=== PATIENT | female | born 2000 | race African-American/Black ===

== ENCOUNTER 2020-06-02 09:31 | Observation (INO) | payer SELFPAY ==
[~2020-06-02] VITALS: Ht 175.3 cm; Wt 95.0 kg
[2020-06-02] MEDS ORDERED: IV NORMAL SALINE 1000ML BAG 1,000 ML IV ONE (10:00)
--- NOTE | 2020-06-02 10:20 | PHYS DOC ---
Past Medical History Past Medical History: No Pertinent History Past Surgical History: No Surgical History Smoking Status: Never Smoker Alcohol Use: None General Adult EDM: Chief Complaint: NAUSEA/VOMITING/DIARRHEA HPI: HPI: 20-year-old female present emergency department with nausea vomiting and abdominal pain for about 5 days. She more than a week ago was diagnosed with an abscess received an incision and drainage and has been on antibiotics. She initially was doing fine with the antibiotics however about 5 days ago she started having nausea vomiting with abdominal pain. She does have vaginal bleeding but is on her period currently. She denies fevers or chills or rashes. Review of systems negative for chest pain shortness of breath nuchal rigidity rash or fever. All other review of systems negative. She denies head injury. ED course: 20-year-old female presenting with nausea and vomiting and abdominal pain with vaginal bleeding currently on her period. On arrival the patient is afebrile. Pulse within normal limits. Abdomen is soft and mildly tender to palpation generally without focus. Blood work with CT abdomen pelvis and ultrasound of the pelvis ordered. CBC unremarkable. Chemistry panel shows low potassium. Creatinine 1.2. No previous for comparison. Lipase within normal limits. Magnesium within normal limits. Urine analysis shows cloudy urine which has increased specific gravity with trace ketones large blood small bilirubin and moderate leuk esterase. Probable UTI. We will give IV Rocephin. We will give IV potassium. Will replete with IV fluids for probable acute kidney injury. On reexamination the patient continues to have nausea with vomiting. The patient refused a pelvic ultrasound. I explained my concern for evaluating the patient's ovary to ensure that she does not have ovarian torsion. She understands the risk of disability infertility chronic pain or other ramifications of this decision. After discussion with her she is willing to have the pelvic ultrasound performed. Will admit for IV fluids and potassium repletion with serial monitoring overnight. I spoke with the hospitalist who accepts patient for admission. Review of Systems: Review of Systems: Constitutional: Denies fever or chills. [] Eyes: Denies change in visual acuity. [] HENT: Denies nasal congestion or sore throat. [] Respiratory: Denies cough or shortness of breath. [] Cardiovascular: Denies chest pain or edema. [] GI: Denies bloody stools : Denies dysuria. [] Musculoskeletal: Denies back pain or joint pain. [] Integument: Denies rash. [] Neurologic: Denies headache, focal weakness or sensory changes. [] Endocrine: Denies polyuria or polydipsia. [] Lymphatic: Denies swollen glands. [] Psychiatric: Denies depression or anxiety. [] Heart Score: C/O Chest Pain: No Risk Factors: Risk Factors: DM, Current or recent (<one month) smoker, HTN, HLP, family history of CAD, obesity. Risk Scores: Score 0 - 3: 2.5% MACE over next 6 weeks - Discharge Home Score 4 - 6: 20.3% MACE over next 6 weeks - Admit for Clinical Observation Score 7 - 10: 72.7% MACE over next 6 weeks - Early Invasive Strategies Current Medications: Current Medications Medications (Trade) Dose Ordered Sig/Jim Start Time Stop Time Status Last Admin Dose Admin Sodium Chloride 1,000 ml @ 1,000 mls/hr Q1H ONCE 06/02/20 10:00 06/02/20 10:59 Allergies: Allergies: Allergies Coded Allergies Type Severity Reaction Last Updated Verified No Known Drug Allergies 06/02/20 No Physical Exam: PE: Constitutional: Well developed, well nourished, no acute distress, non-toxic appearance. [] HENT: Normocephalic, atraumatic, bilateral external ears normal, oropharynx moist, no oral exudates, nose normal. [] Eyes: PERRLA, EOMI, conjunctiva normal, no discharge. [] Neck: Normal range of motion, no tenderness, supple, no stridor. [] Cardiovascular:Heart rate regular rhythm, no murmur [] Lungs & Thorax: Bilateral breath sounds clear to auscultation [] Abdomen: Bowel sounds normal, soft, generally tender without a focus. No rebound tenderness or guarding., no masses, no pulsatile masses. [] Skin: Warm, dry, no erythema, no rash. [] Back: No tenderness, no CVA tenderness. [] Extremities: No tenderness, no cyanosis, no clubbing, ROM intact, no edema. [] Neurologic: Alert and oriented X 3, normal motor function, normal sensory function, no focal deficits noted. [] Psychologic: Affect normal, judgement normal, mood normal. [] Current Patient Data: Labs: Laboratory Tests Test 06/02/20 09:47 POC Urine HCG, Qualitative Hcg negative (Negative) Vital Signs: Vital Signs Date Time Temp Pulse Resp B/P (MAP) Pulse Ox O2 Delivery O2 Flow Rate FiO2 06/02/20 09:45 98.2 64 16 132/59 (83) 100 Room Air 98.2 EKG: EKG: [] Radiology/Procedures: Radiology/Procedures: [] Course & Med Decision Making: Course & Med Decision Making Pertinent Labs and Imaging studies reviewed. (See chart for details) [] Dragon Disclaimer: Dragon Disclaimer: This electronic medical record was generated, in whole or in part, using a voice recognition dictation system. Departure Departure Impression: Primary Impression: ZAK (acute kidney injury) Additional Impressions: Hypokalemia N&V (nausea and vomiting) UTI (urinary tract infection) Disposition: ADMITTED INPT THIS HOSP Admitting Physician: REMIGIO Condition: STABLE Referrals: NO PCP (PCP) NITESH FRAZIER MD Jun 02, 2020 10:20
[2020-06-02 10:22] LABS: BILIRUBIN,URINE SMALL (NEG); CLARITY,URINE CLOUDY; COLOR,URINE AMBER; NITRITE,URINE NEGATIVE (NEG); PH,URINE 5.5 (<5.0-8.0); PROTEIN,URINE 30 mg/dL (NEG-TRACE); UROBILINOGEN,URINE 0.2 mg/dL (0.2 mg/dL)
[2020-06-02] MEDS ORDERED: ONDANSETRON PF 4 MG/2 ML VIAL. ONE (10:31)
[2020-06-02 10:39] LABS: BACTERIA,URINE FEW /HPF (0-FEW)
[2020-06-02] MEDS ORDERED: ONDANSETRON PF 4 MG/2 ML VIAL. IV ONE (10:45)
[2020-06-02 10:46] LABS: BASO % 0 % (0-3); EOS % 0 % (0-3); HEMATOCRIT 39.6 % (36.0-47.0); HEMOGLOBIN 13.3 g/dL (12.0-15.5); LYMPH # 1.8 x10^3/uL (1.0-4.8); LYMPH % 30 % (24-48); MEAN CORPUSCULAR HEMOGLOBIN 30 pg (25-35); MEAN CORPUSCULAR HGB CONC 34 g/dL (31-37); MEAN CORPUSCULAR VOLUME 88 fL (79-100); MONO # 0.6 x10^3/uL (0.0-1.1); MONO % 10 % (0-9); NEUT # 3.6 x10^3/uL (1.8-7.7); NEUT % 60 % (31-73); PLATELET COUNT 268 x10^3/uL (140-400); RED BLOOD COUNT 4.51 x10^6/uL (3.50-5.40); RED CELL DISTRIBUTION WIDTH 15.4 % (11.5-14.5)
[2020-06-02 10:54] LABS: ALBUMIN 4.1 g/dL (3.4-5.0); ALBUMIN/GLOBULIN RATIO 0.9 (1.0-1.7); CALCIUM 9.3 mg/dL (8.5-10.1); CREATININE 1.2 mg/dL (0.6-1.0); TOTAL BILIRUBIN 0.5 mg/dL (0.2-1.0); TOTAL PROTEIN 8.7 g/dL (6.4-8.2)
[2020-06-02] MEDS ORDERED: CONTRAST GIVEN. MC PRN (11:15)
[2020-06-02] MEDS ORDERED: IOHEXOL 300 MG/ML 100ML VIAL. IV ONE (11:15)
[2020-06-02] MEDS ORDERED: POTASSIUM CHLORIDE 20MEQ 100 ML IV ONE (11:30)
--- NOTE | 2020-06-02 11:42 | RAD ---
PQRS Compliance Statement: One or more of the following individualized dose reduction techniques were utilized for this examinat ion: 1. Automated exposure control 2. Adjustment of the mA and/or kV according to patient size 3. Use of iterative reconstruction technique CT ABDOMEN+PELVIS W Clinical Indication: Reason: abd pain /nausea, vomiting, diarrhea x5 days. Comparison: None. Technique: Helical CT imaging of the abdomen and pelvis is performed after 75 cc of Omnipaque 300 IV contrast. Oral contrast not administered. Findings: Lung bases are clear, there is respiratory motion artifact. The cardiac size is normal. The liver, gallbladder, spleen, pancreas, adrenal glands, abdominal aorta, and kidneys are normal. There is no obvious abnormality of the stomach. There is no dilated small bowel. The appendix is norm al. There is mild sigmoid colon diverticulosis. Transverse colon is decompressed, limiting evaluation . No colon wall thickening is identified. No abdominal adenopathy or free fluid. Retroverted uterus. The ovaries are similar in size. Urinary bladder is decompressed, otherwise casandra l. No pelvic free fluid. Bilateral inguinal lymph nodes may be reactive. There is superficial subcuta neous induration of the medial right upper thigh, image 92, coronal image 15. No acute bone abnormality. IMPRESSION: 1. No acute abdominal or pelvic abnormality. 2. There is superficial subcutaneous induration of the medial right upper thigh. Recommend correlati on with physical exam. 3. Bilateral inguinal lymph nodes may be reactive. 4. Mild sigmoid colon diverticulosis. Electronically signed by: Donal Mayer MD (06/02/2020 11:39 AM) [id number]
[2020-06-02] MEDS ORDERED: IV NORMAL SALINE 1000ML BAG 1,000 ML IV SCH (12:00)
[2020-06-02] MEDS ORDERED: cefTRIAXone IV Push 1 GM VIAL. IVP ONE (12:00)
--- NOTE | 2020-06-02 12:07 | PDOC1 ---
History and Physical Date of Admission Date of Admission DATE: 06/02/20 TIME: 12:06 Identification/Chief Complaint Chief Complaint INTRACTABLE VOMITING x 5 days History of Present Illness History of Present Illness SEEN IN ER WITH VOMITING NOT responsive to conservative rx 20-year-old female present emergency department with nausea vomiting and abdominal pain for 5 days. She more than a week ago was diagnosed with an abscess received an incision and drainage and has been on antibiotics. She initially was doing fine with the antibiotics however about 5 days ago she started having nausea vomiting with abdominal pain. She denies fevers or chills or rashes. CT ABN NEG , will make npo, start iv fluids, iv rocephin 1 gm q 24 hrs cr elevated at 1.2 14 pt Review of systems negative for chest pain shortness of breath nuchal rigidity rash or fever. She denies head injury. Past Medical History Past Medical History Past Medical History Past Medical History Past Medical History: obesity Past Surgical History: No Surgical History Smoking Status: Never Smoker Alcohol Use: None FHX OBESITY Pulmonary: No pertinent hx GI: No pertinent hx Heme/Onc: No pertinent hx Hepatobiliary: No pertinent hx Psych: No pertinent hx Rheumatologic: No pertinent hx Infectious disease: No pertinent hx Renal/: No pertinent hx Endocrine: No pertinent hx Dermatology: No pertinent hx Family History Family History: High Cholestrol, Hypertension Social History Smoke: No ALCOHOL: none Drugs: None Current Problem List Problem List Problems Medical Problems: (1) ZAK (acute kidney injury) Status: Acute (2) Hypokalemia Status: Acute (3) N&V (nausea and vomiting) Status: Acute (4) UTI (urinary tract infection) Status: Acute Current Medications Current Medications Current Medications Sodium Chloride 1,000 ml @ 1,000 mls/hr Q1H ONCE IV Last administered on 06/02/20at 10:34; Start 06/02/20 at 10:00; Stop 06/02/20 at 10:59; Status DC Ondansetron HCl (Zofran) 4 mg STK-MED ONCE .ROUTE ; Start 06/02/20 at 10:31; Stop 06/02/20 at 10:31; Status DC Ondansetron HCl (Zofran) 4 mg 1X ONCE IV Last administered on 06/02/20at 10:34; Start 06/02/20 at 10:45; Stop 06/02/20 at 10:46; Status DC Iohexol (Omnipaque 300 Mg/ml) 75 ml 1X ONCE IV Last administered on 06/02/20at 11:12; Start 06/02/20 at 11:15; Stop 06/02/20 at 11:16; Status DC Info (CONTRAST GIVEN -- Rx MONITORING) 1 each PRN DAILY PRN MC SEE COMMENTS; Start 06/02/20 at 11:15; Stop 06/04/20 at 11:14 Potassium Chloride/Water 100 ml @ 50 mls/hr 1X ONCE IV ; Start 06/02/20 at 11:30; Stop 06/02/20 at 13:29 Ceftriaxone Sodium (Rocephin) 1 gm 1X ONCE IVP Last administered on 06/02/20at 12:00; Start 06/02/20 at 12:00; Stop 06/02/20 at 12:01; Status DC Sodium Chloride 1,000 ml @ 120 mls/hr Q8H20M IV ; Start 06/02/20 at 12:00; Stop 06/02/20 at 15:59 Allergies Allergies: Coded Allergies: No Known Drug Allergies (Unverified , 06/02/20) ROS General: YES: Fatigue; No: Chills, Night Sweats, Malaise, Appetite, Other PSYCHOLOGICAL ROS: YES: Anxiety; No: Behavioral Disorder, Concentration difficultie, Decreased libido, Depression, Disorientation, Hallucinations, Hostility, Irritablity, Memory difficulties, Mood Swings, Obsessive thoughts, Physical abuse, Sexual abuse, Sleep disturbances, Suicidal ideation, Other Eyes: No Blurry vision, No Decreased vision, No Double vision, No Dry eyes, No Excessive tearing, No Eye Pain, No Itchy Eyes, No Loss of vision, No Photophobia, No Scotomata, No Uses contacts, No Uses glasses, No Other HEENT: No: Heacaches, Visual Changes, Hearing change, Nasal congestion, Nasal discharge, Oral lesions, Sinus pain, Sore Throat, Epistaxis, Sneezing, Snoring, Tinnitus, Vertigo, Vocal changes, Other ALLERGY AND IMMUNOLOGY: No: Hives, Insect Bite Sensitivity, Itchy/Watery Eyes, Nasal Congestion, Post Nasal Drip, Seasonal Allergies, Other Hematological and Lymphatic: No: Bleeding Problems, Blood Clots, Blood Transf usions, Brusing, Night Sweats, Pallor, Swollen Lymph Nodes, Other ENDOCRINE: No: Breast Changes, Galactorrhea, Hair Pattern Changes, Hot Flashes, Malaise/lethargy, Mood Swings, Palpitations, Polydipsia/polyuria, Skin Changes, Temperature Intolerance, Unexpected Weight Changes, Other Breast: No New/Changing Breast Lumps, No Nipple changes, No Nipple discharge, No Other Respiratory: No: Cough, Hemoptysis, Orthopnea, Pleuritic Pain, Shortness of breath, SOB with excertion, Sputum Changes, Stridor, Tachypnea, Wheezing, Other Cardiovascular: No Chest Pain, No Palpitations, No Orthopnea, No Paroxysmal Noc. Dyspnea, No Edema, No Lt Headedness, No Other Gastrointestinal: Yes Nausea, Yes Vomiting; No Abdominal Pain, No Diarrhea, No Constipation, No Melena, No Hematochezia, No Other Genitourinary: No Dysuria, No Frequency, No Incontinence, No Hematuria, No Retention, No Discharge, No Urgency, No Pain, No Flank Pain, No Other, No , No , No , No , No , No , No Musculoskeletal: Yes Muscular Weakness; No Gait Disturbance, No Joint Pain, No Joint Stiffness, No Joint Swelling, No Muscle Pain, No Pain In:, No Swelling In:, No Other Neurological: No Behavorial Changes, No Bowel/Bladder ControlChng, No Confusion, No Dizziness, No Gait Disturbance, No Headaches, No Impaired Coord/balance, No Memory Loss, No Numbness/Tingling, No Seizures, No Speech Problems, No Tremors, No Visual Changes, No Weakness, No Other Skin: No Dry Skin, No Eczema, No Hair Changes, No Lumps, No Mole Changes, No Mottling, No Nail Changes, No Pruritus, No Rash, No Skin Lesion Changes, No Other, No Acne Physical Exam General: Alert, Oriented X3, Cooperative, mild distress HEENT: Atraumatic, PERRLA, EOMI, Mucous membr. moist/pink Lungs: Clear to auscultation, Normal air movement Heart: S1S2, RRR, no thrills, no rubs, no gallops, no murmurs Cardiovascular: S1 Breasts: Not examined Abdomen: Normal bowel sounds, Soft Rectal Exam: not examined PELVIC: Examination not indicated Extremities: No cyanosis, No edema Neuro: Normal speech, Strength at 5/5 X4 ext, Cranial nerves 3-12 NL Psych/Mental Status: Mental status NL, Mood NL Vitals Vitals Vital Signs Date Time Temp Pulse Resp B/P (MAP) Pulse Ox O2 Delivery O2 Flow Rate FiO2 06/02/20 09:45 98.2 64 16 132/59 (83) 100 Room Air 98.2 Labs Labs Laboratory Tests Test 06/02/20 09:45 06/02/20 09:47 06/02/20 10:25 Urine Collection Type Unknown Urine Color Laurie Urine Clarity Cloudy Urine pH 5.5 (<5.0-8.0) Urine Specific [place] >=1.030 (1.000-1.030) Urine Protein 30 mg/dL (NEG-TRACE) Urine Glucose (UA) Negative mg/dL (NEG) Urine Ketones (Stick) Trace mg/dL (NEG) Urine Blood Large (NEG) Urine Nitrite Negative (NEG) Urine Bilirubin Small (NEG) Urine Urobilinogen Dipstick 0.2 mg/dL (0.2 mg/dL) Urine Leukocyte Esterase Moderate (NEG) Urine RBC 3-5 /HPF (0-2) Urine WBC 5-10 /HPF (0-4) Urine Squamous Epithelial Cells Many /LPF Urine Bacteria Few /HPF (0-FEW) Urine Mucus Mod /LPF Bedside Urine HCG, Qualitative Hcg negative (Negative) White Blood Count 6.0 x10^3/uL (4.0-11.0) Red Blood Count 4.51 x10^6/uL (3.50-5.40) Hemoglobin 13.3 g/dL (12.0-15.5) Hematocrit 39.6 % (36.0-47.0) Mean Corpuscular Volume 88 fL (79-100) Mean Corpuscular Hemoglobin 30 pg (25-35) Mean Corpuscular Hemoglobin Concent 34 g/dL (31-37) Red Cell Distribution Width 15.4 % (11.5-14.5) Platelet Count 268 x10^3/uL (140-400) Neutrophils (%) (Auto) 60 % (31-73) Lymphocytes (%) (Auto) 30 % (24-48) Monocytes (%) (Auto) 10 % (0-9) Eosinophils (%) (Auto) 0 % (0-3) Basophils (%) (Auto) 0 % (0-3) Neutrophils # (Auto) 3.6 x10^3/uL (1.8-7.7) Lymphocytes # (Auto) 1.8 x10^3/uL (1.0-4.8) Monocytes # (Auto) 0.6 x10^3/uL (0.0-1.1) Eosinophils # (Auto) 0.0 x10^3/uL (0.0-0.7) Basophils # (Auto) 0.0 x10^3/uL (0.0-0.2) Sodium Level 145 mmol/L (136-145) Potassium Level 3.0 mmol/L (3.5-5.1) Chloride Level 104 mmol/L (98-107) Carbon Dioxide Level 27 mmol/L (21-32) Anion Gap 14 (6-14) Blood Urea Nitrogen 16 mg/dL (7-20) Creatinine 1.2 mg/dL (0.6-1.0) Estimated GFR (Cockcroft-Gault) 68.0 BUN/Creatinine Ratio 13 (6-20) Glucose Level 109 mg/dL (70-99) Calcium Level 9.3 mg/dL (8.5-10.1) Magnesium Level 2.2 mg/dL (1.8-2.4) Total Bilirubin 0.5 mg/dL (0.2-1.0) Aspartate Amino Transf (AST/SGOT) 26 U/L (15-37) Alanine Aminotransferase (ALT/SGPT) 28 U/L (14-59) Alkaline Phosphatase 77 U/L (46-116) Total Protein 8.7 g/dL (6.4-8.2) Albumin 4.1 g/dL (3.4-5.0) Albumin/Globulin Ratio 0.9 (1.0-1.7) Lipase 82 U/L (73-393) Laboratory Tests Test 06/02/20 09:45 06/02/20 09:47 06/02/20 10:25 Urine Collection Type Unknown Urine Color Laurie Urine Clarity Cloudy Urine pH 5.5 (<5.0-8.0) Urine Specific [place] >=1.030 (1.000-1.030) Urine Protein 30 mg/dL (NEG-TRACE) Urine Glucose (UA) Negative mg/dL (NEG) Urine Ketones (Stick) Trace mg/dL (NEG) Urine Blood Large (NEG) Urine Nitrite Negative (NEG) Urine Bilirubin Small (NEG) Urine Urobilinogen Dipstick 0.2 mg/dL (0.2 mg/dL) Urine Leukocyte Esterase Moderate (NEG) Urine RBC 3-5 /HPF (0-2) Urine WBC 5-10 /HPF (0-4) Urine Squamous Epithelial Cells Many /LPF Urine Bacteria Few /HPF (0-FEW) Urine Mucus Mod /LPF Bedside Urine HCG, Qualitative Hcg negative (Negative) White Blood Count 6.0 x10^3/uL (4.0-11.0) Red Blood Count 4.51 x10^6/uL (3.50-5.40) Hemoglobin 13.3 g/dL (12.0-15.5) Hematocrit 39.6 % (36.0-47.0) Mean Corpuscular Volume 88 fL (79-100) Mean Corpuscular Hemoglobin 30 pg (25-35) Mean Corpuscular Hemoglobin Concent 34 g/dL (31-37) Red Cell Distribution Width 15.4 % (11.5-14.5) Platelet Count 268 x10^3/uL (140-400) Neutrophils (%) (Auto) 60 % (31-73) Lymphocytes (%) (Auto) 30 % (24-48) Monocytes (%) (Auto) 10 % (0-9) Eosinophils (%) (Auto) 0 % (0-3) Basophils (%) (Auto) 0 % (0-3) Neutrophils # (Auto) 3.6 x10^3/uL (1.8-7.7) Lymphocytes # (Auto) 1.8 x10^3/uL (1.0-4.8) Monocytes # (Auto) 0.6 x10^3/uL (0.0-1.1) Eosinophils # (Auto) 0.0 x10^3/uL (0.0-0.7) Basophils # (Auto) 0.0 x10^3/uL (0.0-0.2) Sodium Level 145 mmol/L (136-145) Potassium Level 3.0 mmol/L (3.5-5.1) Chloride Level 104 mmol/L (98-107) Carbon Dioxide Level 27 mmol/L (21-32) Anion Gap 14 (6-14) Blood Urea Nitrogen 16 mg/dL (7-20) Creatinine 1.2 mg/dL (0.6-1.0) Estimated GFR (Cockcroft-Gault) 68.0 BUN/Creatinine Ratio 13 (6-20) Glucose Level 109 mg/dL (70-99) Calcium Level 9.3 mg/dL (8.5-10.1) Magnesium Level 2.2 mg/dL (1.8-2.4) Total Bilirubin 0.5 mg/dL (0.2-1.0) Aspartate Amino Transf (AST/SGOT) 26 U/L (15-37) Alanine Aminotransferase (ALT/SGPT) 28 U/L (14-59) Alkaline Phosphatase 77 U/L (46-116) Total Protein 8.7 g/dL (6.4-8.2) Albumin 4.1 g/dL (3.4-5.0) Albumin/Globulin Ratio 0.9 (1.0-1.7) Lipase 82 U/L (73-393) Images Images PQRS Compliance Statement: One or more of the following individualized dose reduction techniques were utilized for this examination: 1. Automated exposure control 2. Adjustment of the mA and/or kV according to patient size 3. Use of iterative reconstruction technique CT ABDOMEN+PELVIS W Clinical Indication: Reason: abd pain /nausea, vomiting, diarrhea x5 days. Comparison: None. Technique: Helical CT imaging of the abdomen and pelvis is performed after 75 cc of Omnipaque 300 IV contrast. Oral contrast not administered. Findings: Lung bases are clear, there is respiratory motion artifact. The cardiac size is normal. The liver, gallbladder, spleen, pancreas, adrenal glands, abdominal aorta, and kidneys are normal. There is no obvious abnormality of the stomach. There is no dilated small bowel. The appendix is normal. There is mild sigmoid colon diverticulosis. Transverse colon is decompressed, limiting evaluation. No colon wall thickening is identifi ed. No abdominal adenopathy or free fluid. Retroverted uterus. The ovaries are similar in size. Urinary bladder is decompressed, otherwise normal. No pelvic free fluid. Bilateral inguinal lymph nodes may be reactive. There is superficial subcutaneous induration of the medial right upper thigh, image 92, coronal image 15. No acute bone abnormality. IMPRESSION: 1. No acute abdominal or pelvic abnormality. 2. There is superficial subcutaneous induration of the medial right upper thigh. Recommend correlation with physical exam. 3. Bilateral inguinal lymph nodes may be reactive. 4. Mild sigmoid colon diverticulosis. Electronically signed by: Donal Bishop MD (06/02/2020 11:39 AM) [id number] DICTATED and SIGNED BY: DONAL BISHOP MD DATE: 06/02/20 [id number] 0 VTE Prophylaxis Ordered VTE Prophylaxis Devices: Yes VTE Pharmacological Prophylaxi: Yes Assessment/Plan Assessment/Plan Impression: ZAK (acute kidney injury) obesity Hypokalemia N&V (nausea and vomiting) intractable UTI (urinary tract infection) ADMITTED iv fluid support npo DVT PROPHYLAXIS IV ZOFRAN 4 MG Q 4 HRS PRN REPLACE LYTES iv rocephin 1 gm q 24 hrs observation status Justifications for Admission Other Justification MARY AGUILAR MD Jun 02, 2020 12:07
[2020-06-02] MEDS ORDERED: METOCLOPRAMIDE HCL 10 MG/2 ML VIAL. IVP ONE (12:15)
[2020-06-02] MEDS ORDERED: HALOPERIDOL LACTATE 5 MG/ML VIAL. IVP ONE (12:30)
[2020-06-02] MEDS: cefTRIAXone IV Push 1 GM VIAL. IVP SCH (13:23)
[2020-06-02] MEDS ORDERED: guaiFENesin ORAL 200 MG/10 ML LIQUID. PO PRN (13:30)
[2020-06-02] MEDS ORDERED: LORazepam 0.5 MG TABLET PO PRN (13:30)
[2020-06-02] MEDS ORDERED: DOCUSATE SODIUM 100 MG CAPSULE. PO PRN (13:30)
[2020-06-02] MEDS ORDERED: ALBUTEROL SULFATE 2.5 MG/3 ML NEBU. NEB PRN (13:30)
[2020-06-02] MEDS ORDERED: ACETAMINOPHEN 325 MG TABLET. PO PRN (13:30)
[2020-06-02] MEDS ORDERED: ACETAMINOPHEN 650 MG SUPP.RECT. PR PRN (13:30)
[2020-06-02] MEDS ORDERED: SODIUM PHOSPHATES 19/7GM 133 ML ENEMA. PR PRN (13:30)
[2020-06-02] MEDS ORDERED: 0.9 % SODIUM CHLORIDE 10 ML DISP.SYRIN. IV PRN (13:30)
[2020-06-02] MEDS ORDERED: MAG HYDROX/ALUMINUM HYD/SIMETH 30 ML ORAL.SUSP PO PRN (13:30)
[2020-06-02 15:00] VITALS: BP 127/83
[2020-06-02] MEDS ORDERED: ENOXAPARIN 40 MG/0.4 ML SYRINGE. SQ SCH (16:00)
[2020-06-02 19:00] VITALS: BP 98/59
[2020-06-02] MEDS ORDERED: diphenhydrAMINE HCL 25 MG CAPSULE PO ONE (20:15)
[2020-06-02] MEDS: LACTOBACILLUS RHAMNOSUS GG 1 CAPSULE. PO SCH (20:45)
[2020-06-02] MEDS: ONDANSETRON PF 4 MG/2 ML VIAL. IV PRN (22:37)
[2020-06-02 23:00] VITALS: BP 142/92
[2020-06-03 03:00] VITALS: BP 128/77
[2020-06-03] MEDS: ONDANSETRON PF 4 MG/2 ML VIAL. IV PRN (04:50)
[2020-06-03 07:00] VITALS: BP 119/65
[2020-06-03 07:17] LABS: ALBUMIN 3.3 g/dL (3.4-5.0); ALBUMIN/GLOBULIN RATIO 0.9 (1.0-1.7); CALCIUM 7.9 mg/dL (8.5-10.1); CREATININE 1.2 mg/dL (0.6-1.0); POTASSIUM 3.7 mmol/L (3.5-5.1); TOTAL BILIRUBIN 0.4 mg/dL (0.2-1.0); TOTAL PROTEIN 6.8 g/dL (6.4-8.2)
[2020-06-03 07:23] LABS: BASO % 0 % (0-3); EOS % 0 % (0-3); HEMATOCRIT 35.9 % (36.0-47.0); HEMOGLOBIN 11.6 g/dL (12.0-15.5); LYMPH # 1.6 x10^3/uL (1.0-4.8); LYMPH % 31 % (24-48); MEAN CORPUSCULAR HEMOGLOBIN 29 pg (25-35); MEAN CORPUSCULAR HGB CONC 32 g/dL (31-37); MEAN CORPUSCULAR VOLUME 90 fL (79-100); MONO # 0.5 x10^3/uL (0.0-1.1); MONO % 10 % (0-9); NEUT % 59 % (31-73); PLATELET COUNT 225 x10^3/uL (140-400); RED BLOOD COUNT 3.99 x10^6/uL (3.50-5.40); RED CELL DISTRIBUTION WIDTH 15.1 % (11.5-14.5); WHITE BLOOD COUNT 5.1 x10^3/uL (4.0-11.0)
[2020-06-03] MEDS ORDERED: PROCHLORPERAZINE 10 MG/2 ML VIAL. IV PRN (08:15)
[2020-06-03] MEDS: LACTOBACILLUS RHAMNOSUS GG 1 CAPSULE. PO SCH (09:00)
--- NOTE | 2020-06-03 09:44 | NUR ---
SW following. Discussed with RN, pt from home, room air, NPO. Med Assist following for self pay status. SW will continue to follow.
[2020-06-03 11:00] VITALS: BP 123/77
--- NOTE | 2020-06-03 11:14 | PDOC ---
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 Chart reviewed Vitals/I&O Vitals/I&O: Vital Signs Date Time Temp Pulse Resp B/P (MAP) Pulse Ox O2 Delivery O2 Flow Rate FiO2 06/03/20 07:00 98.1 61 18 119/65 (83) 100 Room Air 98.1 I & O 06/02/20 06/02/20 06/03/20 15:00 23:00 07:00 Intake Total 1000 ml 170 ml Balance 1000 ml 170 ml Physical Exam General: Alert, Oriented X3, Cooperative, mild distress Heart: Regular rate, No murmurs Lungs: Clear, Other (No wheezes or crackles) Abdomen: Normal bowel sounds, Soft, No tenderness Extremities: No cyanosis, No edema Skin: No rashes, No significant lesion Labs Labs: Laboratory Tests Test 06/02/20 12:28 06/03/20 06:30 Glucose (Fingerstick) 103 mg/dL (70-99) White Blood Count 5.1 x10^3/uL (4.0-11.0) Red Blood Count 3.99 x10^6/uL (3.50-5.40) Hemoglobin 11.6 g/dL (12.0-15.5) Hematocrit 35.9 % (36.0-47.0) Mean Corpuscular Volume 90 fL (79-100) Mean Corpuscular Hemoglobin 29 pg (25-35) Mean Corpuscular Hemoglobin Concent 32 g/dL (31-37) Red Cell Distribution Width 15.1 % (11.5-14.5) Platelet Count 225 x10^3/uL (140-400) Neutrophils (%) (Auto) 59 % (31-73) Lymphocytes (%) (Auto) 31 % (24-48) Monocytes (%) (Auto) 10 % (0-9) Eosinophils (%) (Auto) 0 % (0-3) Basophils (%) (Auto) 0 % (0-3) Neutrophils # (Auto) 3.0 x10^3/uL (1.8-7.7) Lymphocytes # (Auto) 1.6 x10^3/uL (1.0-4.8) Monocytes # (Auto) 0.5 x10^3/uL (0.0-1.1) Eosinophils # (Auto) 0.0 x10^3/uL (0.0-0.7) Basophils # (Auto) 0.0 x10^3/uL (0.0-0.2) Sodium Level 147 mmol/L (136-145) Potassium Level 3.7 mmol/L (3.5-5.1) Chloride Level 111 mmol/L (98-107) Carbon Dioxide Level 28 mmol/L (21-32) Anion Gap 8 (6-14) Blood Urea Nitrogen 15 mg/dL (7-20) Creatinine 1.2 mg/dL (0.6-1.0) Estimated GFR (Cockcroft-Gault) 68.0 BUN/Creatinine Ratio 13 (6-20) Glucose Level 87 mg/dL (70-99) Calcium Level 7.9 mg/dL (8.5-10.1) Total Bilirubin 0.4 mg/dL (0.2-1.0) Aspartate Amino Transf (AST/SGOT) 22 U/L (15-37) Alanine Aminotransferase (ALT/SGPT) 26 U/L (14-59) Alkaline Phosphatase 58 U/L (46-116) Total Protein 6.8 g/dL (6.4-8.2) Albumin 3.3 g/dL (3.4-5.0) Albumin/Globulin Ratio 0.9 (1.0-1.7) Review of Systems Review of Systems: Reports nausea and vomiting Assessment and Plan Assessmemt and Plan Assessment: ZAK - creatinine 1.2 Hypokalemia - improving N/V UTI Plan: IV fluids Electrolyte replacement Compazine PRN for nausea IV Rocephin 1mg q24h for UTI Discharge after successful PO challenge Home meds DVT prophylaxis Full code Comment Review of Relevant I have reviewed the following items ashlyn (where applicable) has been applied. Medications: Current Medications Medications (Trade) Dose Ordered Sig/Jim Route PRN Reason Start Time Stop Time Status Last Admin Dose Admin Iohexol (Omnipaque 300 Mg/ml) 75 ml 1X ONCE IV 06/02/20 11:15 06/02/20 11:16 DC 06/02/20 11:12 Potassium Chloride/Water 100 ml @ 50 mls/hr 1X ONCE IV 06/02/20 11:30 06/02/20 13:29 DC 06/02/20 12:10 Ceftriaxone Sodium (Rocephin) 1 gm 1X ONCE IVP 06/02/20 12:00 06/02/20 12:01 DC 06/02/20 12:00 Sodium Chloride 1,000 ml @ 120 mls/hr Q8H20M IV 06/02/20 12:00 06/02/20 15:59 DC 06/02/20 12:14 Metoclopramide HCl (Reglan Vial) 10 mg 1X ONCE IVP 06/02/20 12:15 06/02/20 12:16 DC 06/02/20 12:09 Lorazepam (Ativan Inj) 1 mg 1X ONCE IVP 06/02/20 12:30 06/02/20 12:31 DC 06/02/20 12:22 Ondansetron HCl (Zofran) 4 mg PRN Q4HRS PRN IV NAUSEA/VOMITING 06/02/20 13:30 06/03/20 04:50 Enoxaparin Sodium (Lovenox 40mg Syringe) 40 mg Q24H SQ 06/02/20 16:00 06/02/20 16:29 Lactobacillus Rhamnosus (Culturelle) 1 cap BID PO 06/02/20 21:00 06/02/20 20:45 Diphenhydramine HCl (Benadryl) 25 mg 1X ONCE PO 06/02/20 20:15 06/02/20 20:16 DC 06/02/20 22:35 Sodium Chloride 1,000 ml @ 120 mls/hr Q8H20M IV 06/03/20 15:00 06/03/20 08:31 Prochlorperazine Edisylate (Compazine) 10 mg PRN Q8HRS PRN IV NAUSEA/VOMITING 06/03/20 08:15 06/03/20 08:31 Justifications for Admission Other Justification IRAM JOHNSON III DO Jun 03, 2020 11:14
--- NOTE | 2020-06-03 12:15 | DS ---
DATE OF DISCHARGE: 06/03/2020 ADMISSION DIAGNOSES: Intractable nausea and vomiting, menstrual cycle cramps, urinary tract infection, acute kidney injury, hypokalemia. DISCHARGE DIAGNOSES: Resolving acute kidney injury, resolving hypokalemia, resolving nausea and vomiting, resolving urinary tract infection. CONSULTS: None. PROCEDURES: None. HOSPITAL COURSE: The patient is a 20-year-old female who presented with some intractable nausea and vomiting. She states she has difficult periods and thought this might be related to her periods. She did have a UTI on her lab. We started on IV fluids and IV antibiotics. We gave her antiemetics. Today, I saw and examined her. She is approaching her baseline, doing better. I told the nurse to advance her diet this afternoon. If she tolerates, we can let her go home and we are going to call in a prescription for Augmentin 875 p.o. b.i.d. for 5 more days. DISPOSITION: Home. ACTIVITY: As tolerated. DIET: Low sodium. MEDICATIONS: Please see the MRAD, Augmentin 875 p.o. b.i.d. TOTAL TIME: 31 minutes. IRAM JOHNSON DO DR: DANIELLE/jacinta JOB#: [id number] / [id number]
[2020-06-03] MEDS: cefTRIAXone IV Push 1 GM VIAL. IVP SCH (14:19)
[2020-06-03 15:00] VITALS: BP 130/68
[2020-06-03] MEDS ORDERED: IV 1/2 NORMAL SALINE 1,000 ML IV SCH (15:00)
--- NOTE | 2020-06-03 17:25 | NUR ---
patient discharged home with family. meds and follow up reviewed. pt does not have a PCP. was advised she find one, and an OBGYN. IV removed, cath intact. pt stable upon dc.
== END 2020-06-03 17:00 | disposition home or self-care (01) ==
LOC: ER 09:31 → 4 NORTH 11:38
PROVIDERS: ADMIT Family Medicine; ATTEND Family Medicine
DX: N17.9 Acute kidney failure, unspecified (principal); E87.6 Hypokalemia; N39.0 Urinary tract infection, site not specified; E66.9 Obesity, unspecified; Z68.30 Body mass index [BMI] 30.0-30.9, adult
CPT/HCPCS: 36415; 74177; 80053; 81001; 81025; 82962; 83690; 83735; 85025; 87040; 87086; 96361; 96365; 96366; 96372; 96375; 96376; 99285; G0378; J0696; J0780; J1650; J2060; J2405; J2765; J3480; J3490; J7030; Q0163; Q9967; G0379

== ENCOUNTER 2021-02-04 04:59 | Emergency (ER) | payer SELFPAY ==
[~2021-02-04] VITALS: Ht 170.2 cm; Wt 59.0 kg
[2021-02-04 05:37] VITALS: BP 137/68
[2021-02-04] MEDS ORDERED: FAMOTIDINE 20 MG/2 ML VIAL IVP ONE (05:45)
[2021-02-04] MEDS ORDERED: METOCLOPRAMIDE HCL 10 MG/2 ML VIAL. IVP ONE (05:45)
[2021-02-04] MEDS ORDERED: IV NORMAL SALINE 1000ML BAG 1,000 ML IV ONE (05:45)
--- NOTE | 2021-02-04 06:29 | PHYS DOC ---
Past Medical History Past Medical History: No Pertinent History Past Surgical History: No Surgical History Smoking Status: Former Smoker Alcohol Use: None General Adult EDM: Chief Complaint: MULTIPLE COMPLAINTS HPI: HPI: Patient is a 20-year-old female presenting via POV for nausea and vomit. Onset was 6 days ago without any known inciting event, trauma, ingestion or other exacerbating factor. Nothing known makes better. P.o. intake makes worse. Patient reports vague abdominal cramping but cites ongoing nausea and nonbloody nonbilious emesis. Timing of symptoms has been constant since onset. Denies any other concerning associated symptoms. She has no diagnosed medical conditions, takes no medications on a daily basis. Denies any alcohol tobacco or illicit drug use. She has no history of any abdominal surgeries. She is unvaccinated against COVID-19 Review of Systems: Review of Systems: Fourteen body systems of review of systems have been reviewed. See HPI for pertinent positives and negative responses, other faith all other systems are negative, non-pertinent or non-contributory Heart Score: C/O Chest Pain: No Risk Factors: Risk Factors: DM, Current or recent (<one month) smoker, HTN, HLP, family history of CAD, obesity. Risk Scores: Score 0 - 3: 2.5% MACE over next 6 weeks - Discharge Home Score 4 - 6: 20.3% MACE over next 6 weeks - Admit for Clinical Observation Score 7 - 10: 72.7% MACE over next 6 weeks - Early Invasive Strategies Current Medications: Current Medications Medications (Trade) Dose Ordered Sig/Jim Start Time Stop Time Status Last Admin Dose Admin Famotidine (Pepcid Vial) 20 mg 1X ONCE 02/04/21 05:45 02/04/21 05:46 DC 02/04/21 06:17 20 MG Metoclopramide HCl (Reglan Vial) 10 mg 1X ONCE 02/04/21 05:45 02/04/21 05:46 DC 02/04/21 06:18 10 MG Sodium Chloride 1,000 ml @ 1,000 mls/hr 1X ONCE 02/04/21 05:45 02/04/21 06:44 02/04/21 06:12 1,000 MLS/HR Allergies: Allergies: Allergies Coded Allergies Type Severity Reaction Last Updated Verified No Known Drug Allergies 06/02/20 No Physical Exam: PE: Constitutional: Well developed, well nourished, no acute distress, non-toxic appearance. HENT: Normocephalic, atraumatic, bilateral external ears normal, oropharynx dry, no oral exudates, nose normal. Eyes: PERRLA, EOMI, conjunctiva normal, no discharge. Neck: Normal range of motion, no tenderness, supple, no stridor. Cardiovascular: Heart rate regular, sinus rhythm, no murmurs rubs or gallops Lungs & Thorax: Bilateral breath sounds clear to auscultation Abdomen: Bowel sounds normal, soft, no tenderness, no masses, no pulsatile mas ses. Nonsurgical abdomen, no peritoneal signs Skin: Warm, dry, no erythema, no rash. Back: No tenderness, no CVA tenderness. Extremities: No tenderness, no cyanosis, no clubbing, ROM intact, no edema. Neurologic: Alert and oriented X 3, grossly normal motor & sensory function, no focal deficits noted. Psychologic: Affect normal, judgement normal, mood normal. Current Patient Data: Labs: Laboratory Tests Test 02/04/21 06:10 02/04/21 07:05 White Blood Count 6.2 x10^3/uL Red Blood Count 4.83 x10^6/uL Hemoglobin 14.1 g/dL Hematocrit 42.8 % Mean Corpuscular Volume 89 fL Mean Corpuscular Hemoglobin 29 pg Mean Corpuscular Hemoglobin Concent 33 g/dL Red Cell Distribution Width 15.2 % Platelet Count 238 x10^3/uL Neutrophils (%) (Auto) 60 % Lymphocytes (%) (Auto) 31 % Monocytes (%) (Auto) 8 % Eosinophils (%) (Auto) 0 % Basophils (%) (Auto) 0 % Neutrophils # (Auto) 3.8 x10^3/uL Lymphocytes # (Auto) 1.9 x10^3/uL Monocytes # (Auto) 0.5 x10^3/uL Eosinophils # (Auto) 0.0 x10^3/uL Basophils # (Auto) 0.0 x10^3/uL Sodium Level 142 mmol/L Potassium Level 3.0 mmol/L Chloride Level 99 mmol/L Carbon Dioxide Level 31 mmol/L Anion Gap 12 Blood Urea Nitrogen 16 mg/dL Creatinine 1.1 mg/dL Estimated GFR (Cockcroft-Gault) 75.2 BUN/Creatinine Ratio 15 Glucose Level 108 mg/dL Calcium Level 9.4 mg/dL Total Bilirubin 0.6 mg/dL Aspartate Amino Transf (AST/SGOT) 26 U/L Alanine Aminotransferase (ALT/SGPT) 47 U/L Alkaline Phosphatase 74 U/L Troponin I High Sensitivity 5 ng/L Total Protein 8.3 g/dL Albumin 4.3 g/dL Albumin/Globulin Ratio 1.1 Lipase 63 U/L Urine Collection Type Void Urine Color Laurie Urine Clarity Cloudy Urine pH 6.0 Urine Specific [place] >=1.030 Urine Protein 30 mg/dL Urine Glucose (UA) Negative mg/dL Urine Ketones (Stick) 15 mg/dL Urine Blood Large Urine Nitrite Negative Urine Bilirubin Small Urine Urobilinogen Dipstick 1.0 mg/dL Urine Leukocyte Esterase Large Urine RBC 20-40 /HPF Urine WBC 11-20 /HPF Urine Squamous Epithelial Cells Mod /LPF Urine Bacteria Moderate /HPF Urine Mucus Mod /LPF Urine Test Negative Urine Opiates Screen Neg Urine Methadone Screen Neg Urine Barbiturates Neg Urine Phencyclidine Screen Neg Urine Amphetamine/Methamphetamine Neg Urine Benzodiazepines Screen Neg Urine Cocaine Screen Neg Urine Cannabinoids Screen Pos Urine Ethyl Alcohol Neg Current Medications Medications (Trade) Dose Ordered Sig/Jim Route PRN Reason Start Time Stop Time Status Last Admin Dose Admin Sodium Chloride 1,000 ml @ 1,000 mls/hr 1X ONCE IV 02/04/21 05:45 02/04/21 06:44 DC 02/04/21 06:12 Famotidine (Pepcid Vial) 20 mg 1X ONCE IVP 02/04/21 05:45 02/04/21 05:46 DC 02/04/21 06:17 Metoclopramide HCl (Reglan Vial) 10 mg 1X ONCE IVP 02/04/21 05:45 02/04/21 05:46 DC 02/04/21 06:18 Nitrofurantoin Macrocrystals (Macrobid) 100 mg 1X ONCE PO 02/04/21 08:30 02/04/21 08:31 Potassium Chloride (Klor-Con) 40 meq 1X ONCE PO 02/04/21 08:30 02/04/21 08:31 Vital Signs: Vital Signs Date Time Temp Pulse Resp B/P (MAP) Pulse Ox O2 Delivery O2 Flow Rate FiO2 02/04/21 05:37 98.8 98 137/68 (91) 100 Room Air 98.8 EKG: EKG: EKG ordered and interpreted by myself at 0719 hrs. is sinus rhythm at 68 bpm, unremarkable intervals, no axis deviation, no obvious ischemic findings, no STEMI Radiology/Procedures: Radiology/Procedures: INDICATION: Reason: n/v / Spl. Instructions: / History: COMPARISON: None. FINDINGS: Single view of chest obtained. Some limitation at left lung base secondary to overlying soft tissue structures obscuring but no definite consolidation elsewhere in the lungs. Cardiac silhouette unremarkable. IMPRESSION: * Definite focal consolidation is not seen. Electronically signed by: Trevor Davenport MD (02/04/2021 7:55 AM) DESKTOP- [id number] Course & Med Decision Making: Course & Med Decision Making ABCs unremarkable HPI physical exam and comprehensive ER work-up nonconcerning for any emergent or surgical issues Likely self-limiting/viral syndrome that should respond continue supportive care Patient does have UTI, joint-decision made to treat. Hypokalemia that was treated in ER, recommendations for K rich diet and PCP recheck Results from emergency department workup discussed with the patient. Emergency department return precautions discussed. Patient understood counselling and all questions answered to the patient's satisfaction. Understood need to follow up with primary care physician. Patient to be discharged at this time. Afebrile and patient is hemodynamically stable Deyvi Disclaimer: Deyvi Disclaimer: This electronic medical record was generated, in whole or in part, using a voice recognition dictation system. Departure Departure Impression: Primary Impression: Nausea & vomiting Additional Impressions: Person under investigation for COVID-19 UTI (urinary tract infection) Hypokalemia Disposition: 01 HOME / SELF CARE / HOMELESS Condition: STABLE Referrals: NO PCP (PCP) Additional Instructions: You were seen for nausea and vomiting, and possible infection with COVID-19. Your physical exam was reassuring. We tested you for COVID-19 but this test does not come back for 1 to 2 days. In the meantime you need to quarantine yourself at home away from all other individuals, especially those who are elde rly or have any other chronic health issues or an immunocompromised status. Alternate Tylenol and ibuprofen as needed for body aches and pain. If your test does come back positive you need to quarantine yourself for 10 days until symptom-free. You should make sure to drink plenty of fluids and get plenty of rest. In addition, it was disclosed to had findings concerning for an urinary tract infection. Please continue to take the antibiotics as prescribed. You need to contact your PCP to review ER follow-up to review and ensure continued symptomatic resolution of UTI, recheck potassium levels as these were low today, and ensure resolution of your nausea and vomiting. You should return to the ED if you develop worsening pain, fever, flank pain, or any other new or concerning symptoms. Scripts Nitrofurantoin Monohyd/M-Cryst (MACROBID 100 MG CAPSULE) 100 Mg Capsule 1 CAP PO BID for 5 Days, #10 CAP 0 Refills Prov: BRETT APARICIO DO 02/04/21 BRETT APARICIO DO Feb 04, 2021 06:29
[2021-02-04 07:10] LABS: BASO % 0 % (0-3); EOS % 0 % (0-3); HEMATOCRIT 42.8 % (36.0-47.0); HEMOGLOBIN 14.1 g/dL (12.0-15.5); LYMPH # 1.9 x10^3/uL (1.0-4.8); LYMPH % 31 % (24-48); MEAN CORPUSCULAR HEMOGLOBIN 29 pg (25-35); MEAN CORPUSCULAR HGB CONC 33 g/dL (31-37); MEAN CORPUSCULAR VOLUME 89 fL (79-100); MONO # 0.5 x10^3/uL (0.0-1.1); MONO % 8 % (0-9); NEUT # 3.8 x10^3/uL (1.8-7.7); NEUT % 60 % (31-73); PLATELET COUNT 238 x10^3/uL (140-400); RED BLOOD COUNT 4.83 x10^6/uL (3.50-5.40); RED CELL DISTRIBUTION WIDTH 15.2 % (11.5-14.5); WHITE BLOOD COUNT 6.2 x10^3/uL (4.0-11.0)
[2021-02-04 07:18] LABS: CALCIUM 9.4 mg/dL (8.5-10.1); CREATININE 1.1 mg/dL (0.6-1.0); GFR 75.2
[2021-02-04 07:24] LABS: ALBUMIN 4.3 g/dL (3.4-5.0); ALBUMIN/GLOBULIN RATIO 1.1 (1.0-1.7); TOTAL BILIRUBIN 0.6 mg/dL (0.2-1.0); TOTAL PROTEIN 8.3 g/dL (6.4-8.2)
[2021-02-04 07:30] LABS: BILIRUBIN,URINE SMALL (NEG); CLARITY,URINE CLOUDY; COLOR,URINE AMBER; NITRITE,URINE NEGATIVE (NEG); PROTEIN,URINE 30 mg/dL (NEG-TRACE)
[2021-02-04 07:32] LABS: U PREG PATIENT NEGATIVE (NEG)
[2021-02-04 07:36] LABS: BACTERIA,URINE MODERATE /HPF (0-FEW); RBC,URINE 20-40 /HPF (0-2)
[2021-02-04 07:43] LABS: BARBITURATES NEG (NEG); BENZODIAZEPINES NEG (NEG); CANNABINOIDS POS (NEG); COCAINE NEG (NEG); METHADONE NEG (NEG); OPIATES NEG (NEG); PHENCYCLIDINE NEG (NEG)
--- NOTE | 2021-02-04 07:58 | RAD ---
INDICATION: Reason: n/v / Spl. Instructions: / History: COMPARISON: None. FINDINGS: Single view of chest obtained. Some limitation at left lung base secondary to overlying soft tissue structures obscuring but no defi nite consolidation elsewhere in the lungs. Cardiac silhouette unremarkable. IMPRESSION: * Definite focal consolidation is not seen. Electronically signed by: Trevor Davenport MD (02/04/2021 7:55 AM) [id number]
[2021-02-04 08:00] LABS: AMPHETAMINE/METHAMPHETAMINE NEG (NEG)
[2021-02-04] MEDS ORDERED: NITR100C62 PO (08:16)
[2021-02-04] MEDS ORDERED: NITROFURANTOIN MONOHYD/M-CRYST 100 MG CAPSULE. PO ONE (08:30)
[2021-02-04] MEDS ORDERED: POTASSIUM CHLORIDE 20 MEQ TABLET.ER. PO ONE (08:30)
--- NOTE | 2021-02-05 05:05 | EKG ---
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
== END 2021-02-04 08:30 | disposition home or self-care (01) ==
LOC: ER 04:59
DX: N39.0 Urinary tract infection, site not specified (principal); E87.6 Hypokalemia; R11.2 Nausea with vomiting, unspecified; Z87.891 Personal history of nicotine dependence
CPT/HCPCS: 36415; 71045; 80053; 80307; 81001; 81025; 83690; 84484; 85025; 87077; 87086; 87186; 93005; 96361; 96374; 96375; 99285; J2765; J3490; J7030

== ENCOUNTER 2021-03-11 09:29 | Emergency (ER) | payer SELFPAY ==
[~2021-03-11] VITALS: Ht 175.3 cm; Wt 95.5 kg
[~2021-03-11 09:29] MED LIST: NITR100C62 PO
[2021-03-11] MEDS ORDERED: ONDANSETRON PF 4 MG/2 ML VIAL. IVP ONE (10:15)
[2021-03-11] MEDS ORDERED: IV NORMAL SALINE 1000ML BAG 1,000 ML IV ONE (10:15)
[2021-03-11 10:36] LABS: BASO % 0 % (0-3); EOS % 0 % (0-3); HEMATOCRIT 42.5 % (36.0-47.0); HEMOGLOBIN 14.4 g/dL (12.0-15.5); LYMPH # 1.7 x10^3/uL (1.0-4.8); LYMPH % 26 % (24-48); MEAN CORPUSCULAR HEMOGLOBIN 29 pg (25-35); MEAN CORPUSCULAR HGB CONC 34 g/dL (31-37); MEAN CORPUSCULAR VOLUME 87 fL (79-100); MONO # 0.7 x10^3/uL (0.0-1.1); MONO % 10 % (0-9); NEUT # 4.2 x10^3/uL (1.8-7.7); NEUT % 64 % (31-73); PLATELET COUNT 243 x10^3/uL (140-400); RED BLOOD COUNT 4.89 x10^6/uL (3.50-5.40); RED CELL DISTRIBUTION WIDTH 14.7 % (11.5-14.5); WHITE BLOOD COUNT 6.6 x10^3/uL (4.0-11.0)
[2021-03-11 10:41] LABS: CALCIUM 9.1 mg/dL (8.5-10.1); GFR 83.9; POTASSIUM 3.9 mmol/L (3.5-5.1)
[2021-03-11 10:47] LABS: ALBUMIN/GLOBULIN RATIO 0.8 (1.0-1.7); TOTAL BILIRUBIN 0.5 mg/dL (0.2-1.0); TOTAL PROTEIN 9.2 g/dL (6.4-8.2)
[2021-03-11 10:58] LABS: BILIRUBIN,URINE SMALL (NEG); CLARITY,URINE CLOUDY; COLOR,URINE AMBER; NITRITE,URINE NEGATIVE (NEG); PH,URINE 5.5 (<5.0-8.0); PROTEIN,URINE 100 mg/dL (NEG-TRACE); UROBILINOGEN,URINE 0.2 mg/dL (0.2 mg/dL)
[2021-03-11 11:30] VITALS: BP 140/81
[2021-03-11 11:31] LABS: BACTERIA,URINE MODERATE /HPF (0-FEW); RBC,URINE 0 /HPF (0-2)
[2021-03-11] MEDS ORDERED: ONDA4TAB12 PO (11:59)
[2021-03-11] MEDS ORDERED: NITR100C62 PO (11:59)
--- NOTE | 2021-03-11 12:08 | PHYS DOC ---
Past Medical History Past Medical History: No Pertinent History Past Surgical History: No Surgical History Smoking Status: Never Smoker Alcohol Use: None General Adult EDM: Chief Complaint: NAUSEA/VOMITING/DIARRHEA HPI: HPI: Patient is a 20 year old female who presents with 3-day history of nausea and vomiting. Patient reports associated generalized abdominal pain that is moderate and cramping in nature. She reports 23 episodes of emesis per day. She denies diarrhea, constipation, bloody emesis or bloody stool. She reports she has passed bowel movements in the past few days. Patient is unable to keep clear fluids down consistently. Review of Systems: Review of Systems: Constitutional: Denies fever, chills or generalized weakness Eyes: Denies change in visual acuity, visual field deficits or discharge HENT: Denies ear pain, nasal congestion or sore throat Respiratory: Denies cough or shortness of breath Cardiovascular: Denies chest pain, palpitations or edema GI: See HPI : Denies dysuria or hematuria Musculoskeletal: Denies back pain or joint pain Integument: Denies rash or other skin lesion Neurologic: Denies headache, focal weakness or sensory changes Heart Score: C/O Chest Pain: No Current Medications: Current Medications Medications (Trade) Dose Ordered Sig/Jim Start Time Stop Time Status Last Admin Dose Admin Ondansetron HCl (Zofran) 4 mg 1X ONCE 03/11/21 10:15 03/11/21 10:22 DC 03/11/21 10:35 4 MG Sodium Chloride 1,000 ml @ 1,000 mls/hr 1X ONCE 03/11/21 10:15 03/11/21 11:14 DC 03/11/21 10:33 1,000 MLS/HR Allergies: Allergies: Allergies Coded Allergies Type Severity Reaction Last Updated Verified I S O L A T I O N *CONTACT* Allergy Unknown 02/07/21 Yes No Known Medication Allergies Allergy Unknown 02/07/21 Yes Physical Exam: PE: Constitutional: Well developed, well nourished, no acute distress, non-toxic appearance. HENT: Normocephalic, atraumatic, bilateral external ears without deformity or discharge. Eyes: EOMI, conjunctiva normal, no discharge. Neck: Normal range of motion, no stridor. Cardiovascular: Heart rate regular rhythm, no murmur. Lungs & Thorax: Bilateral breath sounds clear to auscultation. Abdomen: Bowel sounds normal, soft, diffuse tenderness without guarding or rebound, no masses, no pulsatile masses. Skin: Warm, dry, no erythema, no rash. Back: No tenderness, no CVA tenderness. Current Patient Data: Labs: Laboratory Tests Test 03/11/21 10:15 03/11/21 10:30 03/11/21 10:36 White Blood Count 6.6 x10^3/uL (4.0-11.0) Red Blood Count 4.89 x10^6/uL (3.50-5.40) Hemoglobin 14.4 g/dL (12.0-15.5) Hematocrit 42.5 % (36.0-47.0) Mean Corpuscular Volume 87 fL (79-100) Mean Corpuscular Hemoglobin 29 pg (25-35) Mean Corpuscular Hemoglobin Concent 34 g/dL (31-37) Red Cell Distribution Width 14.7 % (11.5-14.5) H Platelet Count 243 x10^3/uL (140-400) Neutrophils (%) (Auto) 64 % (31-73) Lymphocytes (%) (Auto) 26 % (24-48) Monocytes (%) (Auto) 10 % (0-9) H Eosinophils (%) (Auto) 0 % (0-3) Basophils (%) (Auto) 0 % (0-3) Neutrophils # (Auto) 4.2 x10^3/uL (1.8-7.7) Lymphocytes # (Auto) 1.7 x10^3/uL (1.0-4.8) Monocytes # (Auto) 0.7 x10^3/uL (0.0-1.1) Eosinophils # (Auto) 0.0 x10^3/uL (0.0-0.7) Basophils # (Auto) 0.0 x10^3/uL (0.0-0.2) Sodium Level 139 mmol/L (136-145) Potassium Level 3.9 mmol/L (3.5-5.1) Chloride Level 101 mmol/L (98-107) Carbon Dioxide Level 22 mmol/L (21-32) Anion Gap 16 (6-14) H Blood Urea Nitrogen 17 mg/dL (7-20) Creatinine 1.0 mg/dL (0.6-1.0) Estimated GFR (Cockcroft-Gault) 83.9 BUN/Creatinine Ratio 17 (6-20) Glucose Level 135 mg/dL (70-99) H Calcium Level 9.1 mg/dL (8.5-10.1) Total Bilirubin 0.5 mg/dL (0.2-1.0) Aspartate Amino Transferase (AST) 18 U/L (15-37) Alanine Aminotransferase (ALT) 27 U/L (14-59) Alkaline Phosphatase 81 U/L (46-116) Total Protein 9.2 g/dL (6.4-8.2) H Albumin 4.0 g/dL (3.4-5.0) Albumin/Globulin Ratio 0.8 (1.0-1.7) L Lipase 63 U/L (73-393) L Urine Collection Type Unknown Urine Color Laurie Urine Clarity Cloudy Urine pH 5.5 (<5.0-8.0) Urine Specific [place] >=1.030 (1.000-1.030) Urine Protein 100 mg/dL (NEG-TRACE) Urine Glucose (UA) Negative mg/dL (NEG) Urine Ketones (Stick) 40 mg/dL (NEG) Urine Blood Trace (NEG) Urine Nitrite Negative (NEG) Urine Bilirubin Small (NEG) Urine Urobilinogen Dipstick 0.2 mg/dL (0.2 mg/dL) Urine Leukocyte Esterase Small (NEG) Urine RBC 0 /HPF (0-2) Urine WBC 11-20 /HPF (0-4) Urine Squamous Epithelial Cells Many /LPF Urine Bacteria Moderate /HPF (0-FEW) Urine Mucus Mod /LPF POC Urine HCG, Qualitative Hcg negative (Negative) Laboratory Tests 03/11/21 10:15 Laboratory Tests 03/11/21 10:15 Vital Signs: Vital Signs Date Time Temp Pulse Resp B/P (MAP) Pulse Ox O2 Delivery O2 Flow Rate FiO2 03/11/21 09:59 97.3 86 22 134/72 (92) 99 97.3 Course & Med Decision Making: Course & Med Decision Making Pertinent Labs and Imaging studies reviewed. (See chart for details) Patient is an otherwise healthy 20-year-old female who presents with nausea and vomiting for the past 3 days. Work-up today will include labs, urinalysis. She will be provided with IV fluids and IV Zofran. On reevaluation, patient's symptoms are much improved with Zofran. Her labs are reassuring, work-up largely unremarkable. Patient will be treated for UTI with positive leuk esterase in her urine sample. Patient understands and is agreeable to discharge plan. Deyvi Disclaimer: Deyvi Disclaimer: This electronic medical record was generated, in whole or in part, using a voice recognition dictation system. Departure Departure Impression: Primary Impression: Gastroenteritis Additional Impression: Urinary tract infection Qualified Codes: N30.00 - Acute cystitis without hematuria Disposition: HOME / SELF CARE / HOMELESS Condition: IMPROVED Referrals: NO PCP (PCP) Patient Instructions: Viral Gastroenteritis, [id number] Additional Instructions: Take the antibiotics as prescribed. You may take one tablet of Zofran 4mg every 6-8hrs as needed for nausea. The tablet will dissolve under your tongue. Follow a bland diet for the next couple of days and advance as tolerated. Start with clear fluids (broth, white grape juice, ana luis felipe/sprite, jello) and advance to BRAT diet (bananas, rice, applesauce, toast/crackers) and then further to normal diet as you are able. Return to the ED for worsening symptoms or development of new symptoms. Scripts Nitrofurantoin Monohyd/M-Cryst (MACROBID 100 MG CAPSULE) 100 Mg Capsule 1 CAP PO BID for 5 Days, #10 CAP 0 Refills Prov: MARIAN MENDEZ 03/11/21 Ondansetron (ONDANSETRON ODT) 4 Mg Tab.rapdis 1 TAB PO PRN Q6-8HRS, #20 TAB Prov: MARIAN MENDEZ 03/11/21 MARIAN MENDEZ Mar 11, 2021 12:08
== END 2021-03-11 12:25 | disposition home or self-care (01) ==
LOC: ER 09:29
DX: K52.9 Noninfective gastroenteritis and colitis, unspecified (principal); N30.00 Acute cystitis without hematuria; Z91.041 Radiographic dye allergy status
CPT/HCPCS: 36415; 80053; 81001; 81025; 83690; 85025; 87086; 96361; 96374; 99283; J2405; J7030

== ENCOUNTER 2021-03-13 19:38 | Observation (INO) | payer SELFPAY ==
[~2021-03-13] VITALS: Ht 165.1 cm; Wt 100.1 kg
[~2021-03-13 19:38] MED LIST changes: +ONDA4TAB12 PO
[2021-03-13] MEDS ORDERED: fentaNYL PF VIAL 100 MCG/2 ML VIAL IVP ONE (20:15)
[2021-03-13] MEDS ORDERED: ONDANSETRON PF 4 MG/2 ML VIAL. IVP ONE (20:15)
[2021-03-13] MEDS ORDERED: IV NORMAL SALINE 1000ML BAG 1,000 ML IV ONE (20:15)
[2021-03-13 20:35] LABS: BASO % 1 % (0-3); EOS % 0 % (0-3); HEMATOCRIT 42.7 % (36.0-47.0); HEMOGLOBIN 14.4 g/dL (12.0-15.5); LYMPH # 2.1 x10^3/uL (1.0-4.8); LYMPH % 26 % (24-48); MEAN CORPUSCULAR HEMOGLOBIN 30 pg (25-35); MEAN CORPUSCULAR HGB CONC 34 g/dL (31-37); MEAN CORPUSCULAR VOLUME 88 fL (79-100); MONO # 0.8 x10^3/uL (0.0-1.1); MONO % 10 % (0-9); NEUT # 5.3 x10^3/uL (1.8-7.7); NEUT % 64 % (31-73); PLATELET COUNT 246 x10^3/uL (140-400); RED BLOOD COUNT 4.88 x10^6/uL (3.50-5.40); RED CELL DISTRIBUTION WIDTH 14.4 % (11.5-14.5); WHITE BLOOD COUNT 8.3 x10^3/uL (4.0-11.0)
[2021-03-13 20:48] LABS: CALCIUM 9.3 mg/dL (8.5-10.1); CREATININE 1.1 mg/dL (0.6-1.0); GFR 75.2; POTASSIUM 3.2 mmol/L (3.5-5.1)
[2021-03-13 20:54] LABS: ALBUMIN 4.3 g/dL (3.4-5.0); ALBUMIN/GLOBULIN RATIO 0.9 (1.0-1.7); TOTAL BILIRUBIN 0.6 mg/dL (0.2-1.0); TOTAL PROTEIN 9.2 g/dL (6.4-8.2)
[2021-03-13 21:06] LABS: INFLUENZA A PATIENT NEGATIVE (NEGATIVE); INFLUENZA B PATIENT NEGATIVE (NEGATIVE)
--- NOTE | 2021-03-13 21:15 | RAD ---
EXAM: XR CHEST 1V 03/13/2021 8:33 PM CLINICAL INDICATION: Shortness of air COMPARISON: Chest radiograph 02/04/2021 TECHNIQUE: AP upright view of the chest FINDINGS: The heart and mediastinum are normal. Lungs are well-expanded and clear. No consolidatio n, pleural effusion, or pneumothorax. Pulmonary vascularity is normal. The thoracic skeleton is int act. IMPRESSION: No acute cardiopulmonary abnormality. Electronically signed by: Shereen Vanegas MD (03/13/2021 9:13 PM) [id number]
--- NOTE | 2021-03-13 21:27 | PHYS DOC ---
Past Medical History Past Medical History: No Pertinent History Past Surgical History: No Surgical History Smoking Status: Never Smoker Alcohol Use: None Drug Use: None General Adult EDM: Chief Complaint: FLU SYMPTOM HPI: HPI: Patient is a 20-year-old female that presents today with nausea vomiting and diarrhea over the last 10 days. Patient states that she was here 2 days ago was diagnosed with a urinary tract infection and was given antibiotics and for the nausea she was given some Zofran for her nausea. She states that over the last 10 days she has had difficulty keeping by mouth fluids down she has had severe abdominal pain she has also had liquid stools as well. She denies cough she does state that she has body aches. Denies smoking drug use or alcohol. While in reviewing patient's past chart from March 11, 2021 and February 04, 2021 it was found that the patient was positive for marijuana in her urine. She has denied any marijuana use while at this admission. Review of Systems: Review of Systems: Constitutional: Denies fever or chills. [] Eyes: Denies change in visual acuity. [] HENT: Denies nasal congestion or sore throat. [] Respiratory: Denies cough or shortness of breath. [] Cardiovascular: Denies chest pain or edema. [] GI: abdominal pain, nausea, vomiting, and diarrhea. [] : Denies dysuria. [] Musculoskeletal: Denies back pain or joint pain. [] Integument: Denies rash. [] Neurologic: Denies headache, focal weakness or sensory changes. [] Endocrine: Denies polyuria or polydipsia. [] Lymphatic: Denies swollen glands. [] Psychiatric: Denies depression or anxiety. [] Heart Score: C/O Chest Pain: N/A Risk Factors: Risk Factors: DM, Current or recent (<one month) smoker, HTN, HLP, family history of CAD, obesity. Risk Scores: Score 0 - 3: 2.5% MACE over next 6 weeks - Discharge Home Score 4 - 6: 20.3% MACE over next 6 weeks - Admit for Clinical Observation Score 7 - 10: 72.7% MACE over next 6 weeks - Early Invasive Strategies Current Medications: Current Medications Medications (Trade) Dose Ordered Sig/Jim Start Time Stop Time Status Last Admin Dose Admin Fentanyl Citrate (Fentanyl 2ml Vial) 50 mcg 1X ONCE 03/13/21 20:15 03/13/21 20:16 DC 03/13/21 20:38 50 MCG Ondansetron HCl (Zofran) 4 mg 1X ONCE 03/13/21 20:15 03/13/21 20:16 DC 03/13/21 20:38 4 MG Sodium Chloride 1,000 ml @ 999 mls/hr 1X ONCE 03/13/21 20:15 03/13/21 21:15 DC 03/13/21 20:39 999 MLS/HR Allergies: Allergies: Allergies Coded Allergies Type Severity Reaction Last Updated Verified I S O L A T I O N *CONTACT* Allergy Unknown 02/07/21 Yes No Known Medication Allergies Allergy Unknown 02/07/21 Yes Physical Exam: PE: Constitutional: Well developed, well nourished, moderate distress, non-toxic appearance. [] HENT: Normocephalic, atraumatic, bilateral external ears normal, oropharynx moist, no oral exudates, nose normal. [] Eyes: PERRLA, EOMI, conjunctiva normal, no discharge. [] Neck: Normal range of motion, no tenderness, supple, no stridor. [] Cardiovascular:Heart rate regular rhythm, no murmur [] Lungs & Thorax: Bilateral breath sounds clear to auscultation [] Abdomen: Bowel sounds hypoactive, abdominal tenderness noted diffusely throughout the abdomen does not localize to any 1 spot, no pulsatile masses noted, no vaginal bleeding no vaginal discharge Skin: Warm, dry, no erythema, no rash. [] Back: No tenderness, no CVA tenderness. [] Extremities: No tenderness, no cyanosis, no clubbing, ROM intact, no edema. [] Neurologic: Alert and oriented X 3, normal motor function, normal sensory function, no focal deficits noted. [] Psychologic: Affect normal, judgement normal, mood normal. [] Current Patient Data: Labs: Laboratory Tests Test 03/13/21 20:20 03/13/21 20:40 White Blood Count 8.3 x10^3/uL (4.0-11.0) Red Blood Count 4.88 x10^6/uL (3.50-5.40) Hemoglobin 14.4 g/dL (12.0-15.5) Hematocrit 42.7 % (36.0-47.0) Mean Corpuscular Volume 88 fL (79-100) Mean Corpuscular Hemoglobin 30 pg (25-35) Mean Corpuscular Hemoglobin Concent 34 g/dL (31-37) Red Cell Distribution Width 14.4 % (11.5-14.5) Platelet Count 246 x10^3/uL (140-400) Neutrophils (%) (Auto) 64 % (31-73) Lymphocytes (%) (Auto) 26 % (24-48) Monocytes (%) (Auto) 10 % (0-9) H Eosinophils (%) (Auto) 0 % (0-3) Basophils (%) (Auto) 1 % (0-3) Neutrophils # (Auto) 5.3 x10^3/uL (1.8-7.7) Lymphocytes # (Auto) 2.1 x10^3/uL (1.0-4.8) Monocytes # (Auto) 0.8 x10^3/uL (0.0-1.1) Eosinophils # (Auto) 0.0 x10^3/uL (0.0-0.7) Basophils # (Auto) 0.0 x10^3/uL (0.0-0.2) Sodium Level 137 mmol/L (136-145) Potassium Level 3.2 mmol/L (3.5-5.1) L Chloride Level 99 mmol/L (98-107) Carbon Dioxide Level 27 mmol/L (21-32) Anion Gap 11 (6-14) Blood Urea Nitrogen 18 mg/dL (7-20) Creatinine 1.1 mg/dL (0.6-1.0) H Estimated GFR (Cockcroft-Gault) 75.2 BUN/Creatinine Ratio 16 (6-20) Glucose Level 107 mg/dL (70-99) H Calcium Level 9.3 mg/dL (8.5-10.1) Total Bilirubin 0.6 mg/dL (0.2-1.0) Aspartate Amino Transferase (AST) 22 U/L (15-37) Alanine Aminotransferase (ALT) 31 U/L (14-59) Alkaline Phosphatase 71 U/L (46-116) Total Protein 9.2 g/dL (6.4-8.2) H Albumin 4.3 g/dL (3.4-5.0) Albumin/Globulin Ratio 0.9 (1.0-1.7) L Lipase 68 U/L (73-393) L Influenza Type A Antigen Negative (NEGATIVE) Influenza Type B Antigen Negative (NEGATIVE) SARS-CoV-2 Antigen (Rapid) Negative (NEGATIVE) Laboratory Tests 03/13/21 20:20 Laboratory Tests 03/13/21 20:20 Vital Signs: Vital Signs Date Time Temp Pulse Resp B/P (MAP) Pulse Ox O2 Delivery O2 Flow Rate FiO2 03/13/21 20:38 Room Air 03/13/21 20:05 97.8 76 16 145/87 (106) 100 97.8 EKG: EKG: EKG done at [address] Esquivel at 2310 sinus rhythm at a rate of 66 [place] interval of 136 ms with a QT interval of 432 ms no STEMI [] Radiology/Procedures: Radiology/Procedures: REASON: soa PROCEDURE: CHEST AP ONLY EXAM: XR CHEST 1V 03/13/2021 8:33 PM CLINICAL INDICATION: Shortness of air COMPARISON: Chest radiograph 02/04/2021 TECHNIQUE: AP upright view of the chest FINDINGS: The heart and mediastinum are normal. Lungs are well-expanded and clear. No consolidation, pleural effusion, or pneumothorax. Pulmonary vascularity is normal. The thoracic skeleton is intact. IMPRESSION: No acute cardiopulmonary abnormality. Electronically signed by: Shereen Vanegas MD (03/13/2021 9:13 PM) [id number][] REASON: abdominal pain and nausea/vomiting, omni 300 75 ml iv PROCEDURE: CT ABD PELV W/ IV CONTRST ONLY CT abdomen and pelvis with contrast: Reason for examination: Abdominal pain with nausea and vomiting. Comparison is made to previous study dated 06/02/2020. Helical images were obtained through the abdomen and pelvis with intravenous administration of 75 cc Omnipaque 300. Reconstruction was performed in sagittal and coronal planes. Exposure: One or more of the following individualized dose reduction techniques were utilized for this examination: 1. Automated exposure control 2. Adjustment of the mA and/or kV according to patient size 3. Use of iterative reconstruction technique. The lung bases are clear. The heart size is normal with no pericardial effusion. There continues to be a small hypodense lesion in the left lobe of the liver medially which is stable. No abnormality seen at the spleen, adrenal glands, pancreas or gallbladder. The abdominal aorta and inferior vena cava show no acute abnormalities. The colon shows no diverticulosis, diverticulitis or colitis. No abnormality seen at the appendix. The small intestinal tract shows dilatation and wall thickening in the proximal jejunum which may reflect enteritis. Distally the small int estinal tract is not dilated and shows no obstruction. No focal abnormality seen at the stomach or duodenum. The kidneys show no renal masses, renal calculi, hydronephrosis or evidence of obstructive uropathy. The bladder is not distended. No abnormalities are seen in the uterus or at the adnexa. There is no free fluid or free air seen in the abdomen or pelvis. No acute bony abnormalities are identified. IMPRESSION: Dilatation wall the remaining in the proximal jejunum which may reflect en teritis. Hypodense lesion in the left lobe liver probably representing a hemangioma. Electronically signed by: Geetha Amato MD (03/13/2021 11:17 PM) [facility] Course & Med Decision Making: Course & Med Decision Making Pertinent Labs and Imaging studies reviewed. (See chart for details 2235 did talk to patient about laboratory findings that she is positive for mar ijuana and the symptoms that she is experiencing can be adverse reactions to taking marijuana either an oral form or smoking it. She states she has not smoked marijuana in over 30 days. She was informed that her urine drug screen did show that that is still in her system, I asked if anyone in her household has been smoking it and that she could have had inadvertently had contact with it and she denies that. Patient will be given some Haldol to help with her symptoms. Patient continues to still have vomiting. 2331 reassessment of patient patient continues to have abdominal pain and nausea. Patient is requesting by mouth fluids was given some ice chips, and a cool towel. Patient is agreeable to the plan of care of admitting her overnight for further evaluation in the morning by the admitting team. Deyvi Disclaimer: Deyvi Disclaimer: This electronic medical record was generated, in whole or in part, using a voice recognition dictation system. Departure Departure Impression: Primary Impression: Nausea & vomiting Qualified Codes: R11.2 - Nausea with vomiting, unspecified Additional Impressions: Enteritis UTI (urinary tract infection) Qualified Codes: N30.00 - Acute cystitis without hematuria Disposition: ADMITTED INPATIENT Admitting Physician: HIMS Condition: STABLE Referrals: NO PCP (PCP) ANNETTE GANT GEAR MACHINE OPERATOR Mar 13, 2021 21:27
[2021-03-13] MEDS ORDERED: CONTRAST GIVEN. MC PRN (21:45)
[2021-03-13] MEDS ORDERED: IOHEXOL 300 MG/ML 100ML VIAL. IV ONE (22:00)
[2021-03-13] MEDS ORDERED: POTASSIUM CHLORIDE 20 MEQ TABLET.ER. PO ONE (22:00)
[2021-03-13 22:15] LABS: BILIRUBIN,URINE MODERATE (NEG); CLARITY,URINE CLEAR; COLOR,URINE AMBER; NITRITE,URINE NEGATIVE (NEG); PROTEIN,URINE 30 mg/dL (NEG-TRACE)
[2021-03-13 22:21] LABS: BACTERIA,URINE MODERATE /HPF (0-FEW); RBC,URINE 0 /HPF (0-2)
[2021-03-13 22:22] LABS: BARBITURATES NEG (NEG); BENZODIAZEPINES NEG (NEG); CANNABINOIDS POS (NEG); COCAINE NEG (NEG); METHADONE NEG (NEG); OPIATES NEG (NEG); PHENCYCLIDINE NEG (NEG)
[2021-03-13 22:25] LABS: AMPHETAMINE/METHAMPHETAMINE NEG (NEG)
[2021-03-13] MEDS ORDERED: HALOPERIDOL LACTATE 5 MG/ML VIAL. IVP ONE (23:00)
--- NOTE | 2021-03-13 23:19 | RAD ---
CT abdomen and pelvis with contrast: Reason for examination: Abdominal pain with nausea and vomiting. Comparison is made to previous study dated 06/02/2020. Helical images were obtained through the abdomen and pelvis with intravenous administration of 75 cc Omnipaque 300. Reconstruction was performed in sagittal and coronal planes. Exposure: One or more of the following individualized dose reduction techniques were utilized for thi s examination: 1. Automated exposure control 2. Adjustment of the mA and/or kV according to patient size 3. Use of iterative reconstruction technique. The lung bases are clear. The heart size is normal with no pericardial effusion. There continues to be a small hypodense lesion in the left lobe of the liver medially which is stable . No abnormality seen at the spleen, adrenal glands, pancreas or gallbladder. The abdominal aorta and inferior vena cava show no acute abnormalities. The colon shows no diverticul osis, diverticulitis or colitis. No abnormality seen at the appendix. The small intestinal tract show s dilatation and wall thickening in the proximal jejunum which may reflect enteritis. Distally the sm all intestinal tract is not dilated and shows no obstruction. No focal abnormality seen at the stomac h or duodenum. The kidneys show no renal masses, renal calculi, hydronephrosis or evidence of obstructive uropathy. The bladder is not distended. No abnormalities are seen in the uterus or at the adnexa. There is no free fluid or free air seen in the abdomen or pelvis. No acute bony abnormalities are identified. IMPRESSION: Dilatation wall the remaining in the proximal jejunum which may reflect enteritis. Hypodense lesion in the left lobe liver probably representing a hemangioma. Electronically signed by: Geetha Amato MD (03/13/2021 11:17 PM) ROSEANNE
[2021-03-13] MEDS ORDERED: fentaNYL PF VIAL 100 MCG/2 ML VIAL IVP PRN (23:45)
[2021-03-13] MEDS ORDERED: ONDANSETRON PF 4 MG/2 ML VIAL. IVP PRN (23:45)
[2021-03-14] MEDS ORDERED: cefTRIAXone IV Push 1 GM VIAL. IVP ONE
[2021-03-14] MEDS: IV NORMAL SALINE 1000ML BAG 1,000 ML IV SCH ×3 (00:47→20:10)
[2021-03-14 02:15] VITALS: BP 113/77
[2021-03-14 07:00] VITALS: BP 119/74
[2021-03-14] MEDS ORDERED: ZOLPIDEM 5 MG TABLET. PO PRN (09:15)
[2021-03-14] MEDS ORDERED: CALCIUM CARBONATE 500 MG TAB.CHEW PO PRN (09:15)
[2021-03-14] MEDS ORDERED: ONDANSETRON PF 4 MG/2 ML VIAL. IVP PRN (09:15)
[2021-03-14] MEDS ORDERED: ACETAMINOPHEN 325 MG TABLET. PO PRN (09:15)
[2021-03-14] MEDS ORDERED: MAG HYDROX/ALUMINUM HYD/SIMETH 30 ML ORAL.SUSP PO PRN (09:15)
[2021-03-14] MEDS ORDERED: PIP/TAZO PER PHARMACY MC PRN (09:15)
[2021-03-14] MEDS ORDERED: LIDO:MAALOX 1:1 20 ML SINGLE DOSE. PO PRN (09:15)
[2021-03-14] MEDS ORDERED: IV NORMAL SALINE 1000ML BAG 1,000 ML IV SCH (09:15)
[2021-03-14] MEDS ORDERED: ELECTROLYTE (NON-ICU) PROTOCOL. MC PRN (09:15)
[2021-03-14] MEDS ORDERED: PROCHLORPERAZINE 10 MG/2 ML VIAL. IVP PRN (09:15)
[2021-03-14] MEDS: SENNOSIDES/DOCUSATE 8.6/50MG TABLET. PO SCH ×2 (09:28→20:10)
[2021-03-14] MEDS: ENOXAPARIN 40 MG/0.4 ML SYRINGE. SQ SCH (09:41)
[2021-03-14] MEDS: PIPERACILLIN/TAZOBACTAM 3.375 GM in IV NORMAL SALINE 50ML 50 ML IV SCH ×2 (09:41→17:22)
--- NOTE | 2021-03-14 10:19 | EKG ---
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
[2021-03-14 11:00] VITALS: BP 141/90
--- NOTE | 2021-03-14 11:34 | NUR ---
SW following. Discussed with RN, pt from home, room air, clear liquid diet, independent, COVID-19 negative. Pt on IV zosyn. Med Assist following for self pay status. SW will continue to follow.
[2021-03-14 15:00] VITALS: BP 129/77
[2021-03-14 19:00] VITALS: BP 123/75
[2021-03-14 23:00] VITALS: BP 120/81
[2021-03-15] MEDS: PIPERACILLIN/TAZOBACTAM 3.375 GM in IV NORMAL SALINE 50ML 50 ML IV SCH ×3 (00:21→12:00)
--- NOTE | 2021-03-15 00:43 | PDOC1 ---
History and Physical Date of Service: DOS: 03/14 late entry Chief Complaint: Chief Complain: n/v diarrhea History of Present Illness: HPI: Patient is a 20-year-old female that presented overnight with nausea vomiting and diarrhea over the last 10 days. Patient states that she was here 2 days ago was diagnosed with a urinary tract infection and was given antibiotics and for the nausea she was given some Zofran for her nausea. She states that over the last 10 days she has had difficulty keeping by mouth fluids down she has had severe abdominal pain she has also had liquid stools as well. She denies cough she does state that she has body aches. Denies smoking drug use or alcohol. While in reviewing patient's past chart from March 11, 2021 and February 04, 2021 it was found that the patient was positive for marijuana in her urine. She has denied any marijuana use while at this admission. Past Medical/Surgical History: PMH/PSH: none per patient Allergies: Allergies: Coded Allergies: I S O L A T I O N *CONTACT* (Verified Allergy, Unknown, 02/07/21) mrsa No Known Medication Allergies (Verified Allergy, Unknown, 02/07/21) Family History: Family History: none per patient Social History: Social History: social alcohol, denies tobacco, occ marijuana use Current Medications: Current Medications Current Medications Sodium Chloride 1,000 ml @ 999 mls/hr 1X ONCE IV Last administered on 03/13/21at 20:39; Start 03/13/21 at 20:15; Stop 03/13/21 at 21:15; Status DC Ondansetron HCl (Zofran) 4 mg 1X ONCE IVP Last administered on 03/13/21at 20:38; Start 03/13/21 at 20:15; Stop 03/13/21 at 20:16; Status DC Fentanyl Citrate (Fentanyl 2ml Vial) 50 mcg 1X ONCE IVP Last administered on 03/13/21at 20:38; Start 03/13/21 at 20:15; Stop 03/13/21 at 20:16; Status DC Iohexol (Omnipaque 300 Mg/ml) 75 ml 1X ONCE IV Last administered on 03/13/21at 22:23; Start 03/13/21 at 22:00; Stop 03/13/21 at 22:01; Status DC Info (CONTRAST GIVEN -- Rx MONITORING) 1 each PRN DAILY PRN MC SEE COMMENTS; Start 03/13/21 at 21:45; Stop 03/15/21 at 21:44 Potassium Chloride (Klor-Con) 40 meq 1X ONCE PO Last administered on 03/13/21at 22:07; Start 03/13/21 at 22:00; Stop 03/13/21 at 22:01; Status DC Haloperidol Lactate (Haldol Inj) 2 mg 1X ONCE IVP Last administered on 03/13/21at 23:16; Start 03/13/21 at 23:00; Stop 03/13/21 at 23:01; Status DC Ondansetron HCl (Zofran) 4 mg PRN Q8HRS PRN IVP NAUSEA/VOMITING 1ST CHOICE; Start 03/13/21 at 23:45; Stop 03/14/21 at 09:19; Status DC Fentanyl Citrate (Fentanyl 2ml Vial) 50 mcg PRN Q2HRS PRN IVP SEVERE PAIN 7-10; Start 03/13/21 at 23:45; Stop 03/14/21 at 23:44; Status DC Sodium Chloride 1,000 ml @ 100 mls/hr Q10H IV Last administered on 03/14/21at 20:10; Start 03/13/21 at 23:45; Stop 03/14/21 at 23:44; Status DC Ceftriaxone Sodium (Rocephin) 1 gm 1X ONCE IVP Last administered on 03/14/21at 00:47; Start 03/14/21 at 00:00; Stop 03/14/21 at 00:01; Status DC Piperacillin Sod/ Tazobactam Sod (Zosyn Per Pharmacy) 1 each PRN DAILY PRN MC SEE COMMENTS; Start 03/14/21 at 09:15 Piperacillin Sod/ Tazobactam Sod 3.375 gm/Sodium Chloride 50 ml @ 100 mls/hr Q6HRS IV Last administered on 03/15/21at 00:21; Start 03/14/21 at 10:00 Sodium Chloride 1,000 ml @ 100 mls/hr Q10H IV ; Start 03/14/21 at 09:15; Stop 03/14/21 at 19:14; Status DC Ondansetron HCl (Zofran) 4 mg PRN Q6HRS PRN IVP NAUSEA/VOMITING; Start 03/14/21 at 09:15 Prochlorperazine Edisylate (Compazine) 10 mg PRN Q6HRS PRN IVP NAUSEA/VOMITING; Start 03/14/21 at 09:15 Al Hydroxide/Mg Hydroxide (Mylanta Plus Xs) 30 ml PRN Q3HRS PRN PO HEARTBURN / GAS; Start 03/14/21 at 09:15 Calcium Carbonate/ Glycine (Tums) 500 mg PRN Q3HRS PRN PO UPSET STOMACH; Start 03/14/21 at 09:15 Zolpidem Tartrate (Ambien) 5 mg PRN QHS PRN PO INSOMNIA, MAY REPEAT IN 1HR; Start 03/14/21 at 09:15 Info (Non-Icu Electrolyte Protocol) 1 ea PRN DAILY PRN MC SEE COMMENTS; Start 03/14/21 at 09:15 Acetaminophen (Tylenol) 650 mg PRN Q6HRS PRN PO Headaches, Temp > 101.5F; Start 03/14/21 at 09:15 Senna/Docusate Sodium (Senna Plus) 1 tab BID PO ; Start 03/14/21 at 10:00 Enoxaparin Sodium (Lovenox 40mg Syringe) 40 mg DAILY SQ Last administered on 03/14/21at 09:41; Start 03/14/21 at 10:00 Multi-Ingredient Mouthwash/Gargle (Gi Cocktail) 20 ml PRN QID PRN PO CHEST PAIN Last administered on 03/14/21at 21:13; Start 03/14/21 at 09:15 Active Scripts Active Ondansetron Odt (Ondansetron) 4 Mg Tab.rapdis 1 Tab PO PRN Q6-8HRS Macrobid 100 Mg Capsule (Nitrofurantoin Monohyd/M-Cryst) 100 Mg Capsule 1 Cap PO BID 5 Days ROS: Review of Systems Unless noted in hpi a 14pt ros was negative Physical Exam: Vital Signs: Vital Signs Date Time Temp Pulse Resp B/P (MAP) Pulse Ox O2 Delivery O2 Flow Rate FiO2 03/14/21 20:00 Room Air 03/14/21 15:00 98.0 71 20 129/77 (94) 99 98.0 Physcial Exam: GEN: No apparent distress. Alert and oriented HEENT: Normal cephalic, atraumatic, external auditory canals are patent EYES: Extraocular muscles are intact, pupil are equally round and reactive to light and accommodation MUSCULOSKELETAL: Well developed , well nourished, good range of motion ENDOCRINE: No thyromegaly was palpated LYMPHATICS: No cervical chain or axillary nodes were noted HEMATOPOIETIC: No bruising NECK: Supple, no JVD, no thyromegaly was noted LUNGS: Clear to auscultation in all lung dean without rhonchi or wheezing HEART: RRR, S!, S2 present. Peripheral pulses intact, no obvious murmurs noted ABDOMEN: Soft, nontender. Positive bowel sounds, no organomegaly, normal bowel sounds EXTREMITIES: Without clubbing, cyanosis, or edema. Pedal pulses intact. Negative Homans sign NEUROLOGIC: Normal speech and tone. A&O x 3, moves all extremities, no obvious focal deficits PSYCHIATRIC: Normal affect, normal mood. Stable SKIN: No ulcerations or rashes, good skin turgor, no jaundice VASCULAR: Good capillary refill, neurovascular bundle appears to be intact Labs: Labs: Laboratory Tests Test 03/13/21 20:20 03/13/21 20:40 03/13/21 21:35 03/13/21 21:42 White Blood Count 8.3 x10^3/uL (4.0-11.0) Red Blood Count 4.88 x10^6/uL (3.50-5.40) Hemoglobin 14.4 g/dL (12.0-15.5) Hematocrit 42.7 % (36.0-47.0) Mean Corpuscular Volume 88 fL (79-100) Mean Corpuscular Hemoglobin 30 pg (25-35) Mean Corpuscular Hemoglobin Concent 34 g/dL (31-37) Red Cell Distribution Width 14.4 % (11.5-14.5) Platelet Count 246 x10^3/uL (140-400) Neutrophils (%) (Auto) 64 % (31-73) Lymphocytes (%) (Auto) 26 % (24-48) Monocytes (%) (Auto) 10 % (0-9) Eosinophils (%) (Auto) 0 % (0-3) Basophils (%) (Auto) 1 % (0-3) Neutrophils # (Auto) 5.3 x10^3/uL (1.8-7.7) Lymphocytes # (Auto) 2.1 x10^3/uL (1.0-4.8) Monocytes # (Auto) 0.8 x10^3/uL (0.0-1.1) Eosinophils # (Auto) 0.0 x10^3/uL (0.0-0.7) Basophils # (Auto) 0.0 x10^3/uL (0.0-0.2) Sodium Level 137 mmol/L (136-145) Potassium Level 3.2 mmol/L (3.5-5.1) Chloride Level 99 mmol/L (98-107) Carbon Dioxide Level 27 mmol/L (21-32) Anion Gap 11 (6-14) Blood Urea Nitrogen 18 mg/dL (7-20) Creatinine 1.1 mg/dL (0.6-1.0) Estimated GFR (Cockcroft-Gault) 75.2 BUN/Creatinine Ratio 16 (6-20) Glucose Level 107 mg/dL (70-99) Calcium Level 9.3 mg/dL (8.5-10.1) Total Bilirubin 0.6 mg/dL (0.2-1.0) Aspartate Amino Transf (AST/SGOT) 22 U/L (15-37) Alanine Aminotransferase (ALT/SGPT) 31 U/L (14-59) Alkaline Phosphatase 71 U/L (46-116) Total Protein 9.2 g/dL (6.4-8.2) Albumin 4.3 g/dL (3.4-5.0) Albumin/Globulin Ratio 0.9 (1.0-1.7) Lipase 68 U/L (73-393) Influenza Type A Antigen Negative (NEGATIVE) Influenza Type B Antigen Negative (NEGATIVE) SARS-CoV-2 RNA (KYLIE) Negative (Negative) SARS-CoV-2 Antigen (Rapid) Negative (NEGATIVE) Urine Collection Type Unknown Urine Color Laurie Urine Clarity Clear Urine pH 6.0 (<5.0-8.0) Urine Specific Rumely >=1.030 (1.000-1.030) Urine Protein 30 mg/dL (NEG-TRACE) Urine Glucose (UA) Negative mg/dL (NEG) Urine Ketones (Stick) >=80 mg/dL (NEG) Urine Blood Negative (NEG) Urine Nitrite Negative (NEG) Urine Bilirubin Moderate (NEG) Urine Urobilinogen Dipstick 1.0 mg/dL (0.2 mg/dL) Urine Leukocyte Esterase Small (NEG) Urine RBC 0 /HPF (0-2) Urine WBC 11-20 /HPF (0-4) Urine Squamous Epithelial Cells Many /LPF Urine Bacteria Moderate /HPF (0-FEW) Urine Mucus Marked /LPF Urine Opiates Screen Neg (NEG) Urine Methadone Screen Neg (NEG) Urine Barbiturates Neg (NEG) Urine Phencyclidine Screen Neg (NEG) Urine Amphetamine/Methamphetamine Neg (NEG) Urine Benzodiazepines Screen Neg (NEG) Urine Cocaine Screen Neg (NEG) Urine Cannabinoids Screen Pos (NEG) Urine Ethyl Alcohol Neg (NEG) Bedside Urine HCG, Qualitative Hcg negative (Negative) Assessment/Plan Assessment/Plan enteritis, n/v diarrhea -iv fluids -electrolyte replacement as needed -continue zosyn -adat Justifications for Admission Other Justification GUDELIA PEREZ MD Mar 15, 2021 00:43
[2021-03-15 07:00] VITALS: BP 128/79
[2021-03-15] MEDS: SENNOSIDES/DOCUSATE 8.6/50MG TABLET. PO SCH (07:18)
[2021-03-15] MEDS: ENOXAPARIN 40 MG/0.4 ML SYRINGE. SQ SCH (09:00)
[2021-03-15 11:00] VITALS: BP 113/88
--- NOTE | 2021-03-15 12:21 | NUR ---
SS following up with discharge planning. SS reviewed pt chart and discussed with pt RN. Pt is from home and is currently on room air. COVID19 negative. Pt on IV Zosyn. Discharge plan is currently to home when medically ready for discharge. SS will continue to follow for discharge planning.
[2021-03-15] MEDS ORDERED: AMOXICILLIN/K CLAV 875/125MG TABLET. PO SCH (13:30)
--- NOTE | 2021-03-15 13:40 | PDOC ---
[employer] PROGRESS NOTE Date of Service DOS: DATE: 03/15/21 TIME: 13:30 Chief Complaint Chief Complaint Enteritis, n/v diarrhea History of Present Illness History of Present Illness Ms Rubalcava is a 20-year-old female that presented 03/13/21 with nausea vomiting and diarrhea over the last 10 days. Patient states that she was here 2 days ago was diagnosed with a urinary tract infection and was given antibiotics and for the nausea she was given some Zofran for her nausea. She states that over the last 10 days she has had difficulty keeping by mouth fluids down she has had severe abdominal pain she has also had liquid stools as well. She denies cough she does state that she has body aches. Denies smoking drug use or alcohol. While in reviewing patient's past chart from March 11, 2021 and February 04, 2021 it was found that the patient was positive for marijuana in her urine. She has denied any marijuana use while at this admission. Pain and nausea and vomiting improved. She is just spitting up. Has prescription for oral dissolving Zofran at home transitioning to Augmentin for enteritis now. Discussed need for GI follow-up if symptoms persist. She denies any history of ulcer colitis or Crohn's disease in the family. She is starting to have menstrual cramps today and notes that usually severe for about 3 days asking for a Midol currently. Discussed possibility of marijuana hyperemesis syndrome as ameya ingram she notes if she feels this way in the future she will cut back on marijuana use. Vitals/I&O Vitals/I&O: Vital Signs Date Time Temp Pulse Resp B/P (MAP) Pulse Ox O2 Delivery O2 Flow Rate FiO2 03/15/21 11:00 97.4 102 17 113/88 (96) 97 Room Air 97.4 I & O 03/14/21 03/14/21 03/15/21 15:00 23:00 07:00 Intake Total 580 ml 100 ml Output Total 1 ml Balance 580 ml 100 ml -1 ml Physical Exam Lungs: Clear, Other Assessment and Plan Assessmemt and Plan Problems Medical Problems: (1) Enteritis Status: Acute (2) Nausea & vomiting Status: Acute (3) UTI (urinary tract infection) Status: Acute Comment Review of Relevant I have reviewed the following items ashlyn (where applicable) has been applied. Justifications for Admission Other Justification GUDELIA LABOY MD Mar 15, 2021 13:40
[2021-03-15] MEDS ORDERED: AMOX1TAB11 PO (13:41)
--- NOTE | 2021-03-15 13:43 | PDOC3 ---
Discharge Summary Visit Information Date of Admission: Mar 13, 2021 Date of Discharge: Mar 15, 2021 Admitting Diagnosis: Enteritis, nausea vomiting diarrhea Final Diagnosis Problems Medical Problems: (1) Enteritis Status: Acute (2) Nausea & vomiting Status: Acute (3) UTI (urinary tract infection) Status: Acute Brief Hospital Course Allergies Allergies Coded Allergies Type Severity Reaction Last Updated Verified I S O L A T I O N *CONTACT* Allergy Unknown 02/07/21 Yes No Known Medication Allergies Allergy Unknown 02/07/21 Yes Vital Signs Vital Signs Date Time Temp Pulse Resp B/P (MAP) Pulse Ox O2 Delivery O2 Flow Rate FiO2 03/15/21 11:00 97.4 102 17 113/88 (96) 97 Room Air 97.4 Lab Results Laboratory Tests Test 03/13/21 20:20 03/13/21 20:40 03/13/21 21:35 03/13/21 21:42 White Blood Count 8.3 x10^3/uL (4.0-11.0) Red Blood Count 4.88 x10^6/uL (3.50-5.40) Hemoglobin 14.4 g/dL (12.0-15.5) Hematocrit 42.7 % (36.0-47.0) Mean Corpuscular Volume 88 fL (79-100) Mean Corpuscular Hemoglobin 30 pg (25-35) Mean Corpuscular Hemoglobin Concent 34 g/dL (31-37) Red Cell Distribution Width 14.4 % (11.5-14.5) Platelet Count 246 x10^3/uL (140-400) Neutrophils (%) (Auto) 64 % (31-73) Lymphocytes (%) (Auto) 26 % (24-48) Monocytes (%) (Auto) 10 % (0-9) Eosinophils (%) (Auto) 0 % (0-3) Basophils (%) (Auto) 1 % (0-3) Neutrophils # (Auto) 5.3 x10^3/uL (1.8-7.7) Lymphocytes # (Auto) 2.1 x10^3/uL (1.0-4.8) Monocytes # (Auto) 0.8 x10^3/uL (0.0-1.1) Eosinophils # (Auto) 0.0 x10^3/uL (0.0-0.7) Basophils # (Auto) 0.0 x10^3/uL (0.0-0.2) Sodium Level 137 mmol/L (136-145) Potassium Level 3.2 mmol/L (3.5-5.1) Chloride Level 99 mmol/L (98-107) Carbon Dioxide Level 27 mmol/L (21-32) Anion Gap 11 (6-14) Blood Urea Nitrogen 18 mg/dL (7-20) Creatinine 1.1 mg/dL (0.6-1.0) Estimated GFR (Cockcroft-Gault) 75.2 BUN/Creatinine Ratio 16 (6-20) Glucose Level 107 mg/dL (70-99) Calcium Level 9.3 mg/dL (8.5-10.1) Total Bilirubin 0.6 mg/dL (0.2-1.0) Aspartate Amino Transf (AST/SGOT) 22 U/L (15-37) Alanine Aminotransferase (ALT/SGPT) 31 U/L (14-59) Alkaline Phosphatase 71 U/L (46-116) Total Protein 9.2 g/dL (6.4-8.2) Albumin 4.3 g/dL (3.4-5.0) Albumin/Globulin Ratio 0.9 (1.0-1.7) Lipase 68 U/L (73-393) Influenza Type A Antigen Negative (NEGATIVE) Influenza Type B Antigen Negative (NEGATIVE) SARS-CoV-2 RNA (KYLIE) Negative (Negative) SARS-CoV-2 Antigen (Rapid) Negative (NEGATIVE) Urine Collection Type Unknown Urine Color Laurie Urine Clarity Clear Urine pH 6.0 (<5.0-8.0) Urine Specific [place] >=1.030 (1.000-1.030) Urine Protein 30 mg/dL (NEG-TRACE) Urine Glucose (UA) Negative mg/dL (NEG) Urine Ketones (Stick) >=80 mg/dL (NEG) Urine Blood Negative (NEG) Urine Nitrite Negative (NEG) Urine Bilirubin Moderate (NEG) Urine Urobilinogen Dipstick 1.0 mg/dL (0.2 mg/dL) Urine Leukocyte Esterase Small (NEG) Urine RBC 0 /HPF (0-2) Urine WBC 11-20 /HPF (0-4) Urine Squamous Epithelial Cells Many /LPF Urine Bacteria Moderate /HPF (0-FEW) Urine Mucus Marked /LPF Urine Opiates Screen Neg (NEG) Urine Methadone Screen Neg (NEG) Urine Barbiturates Neg (NEG) Urine Phencyclidine Screen Neg (NEG) Urine Amphetamine/Methamphetamine Neg (NEG) Urine Benzodiazepines Screen Neg (NEG) Urine Cocaine Screen Neg (NEG) Urine Cannabinoids Screen Pos (NEG) Urine Ethyl Alcohol Neg (NEG) Bedside Urine HCG, Qualitative Hcg negative (Negative) Brief Hospital Course Ms Rublacava is a 20-year-old female that presented 03/13/21 with nausea vomiting and diarrhea over the last 10 days. Patient states that she was here 2 days ago was diagnosed with a urinary tract infection and was given antibiotics and for the nausea she was given some Zofran for her nausea. She states that over the last 10 days she has had difficulty keeping by mouth fluids down she has had severe abdominal pain she has also had liquid stools as well. She denies cough she does state that she has body aches. Denies smoking drug use or alcohol. While in reviewing patient's past chart from March 11, 2021 and February 04, 2021 it was found that the patient was positive for marijuana in her urine. CT abdomen pelvis shows small bowel enteritis. Given IV Zosyn for 48 hours and IV antiemetics and improved. 03/15: Pain and nausea and vomiting improved. She is just spitting up. Has prescription for oral dissolving Zofran at home transitioning to Augmentin for enteritis now. Discussed need for GI follow-up if symptoms persist. She denies any history of ulcer colitis or Crohn's disease in the family. She is starting to have menstrual cramps today and notes that usually severe for about 3 days asking for a Midol currently. Discussed possibility of marijuana hyperemesis syndrome as well she notes if she feels this way in the future she will cut back on marijuana use. Problem list: Enteritis, n/v diarrhea Greater than 30 minutes spent on d/c home Discharge Information Condition at Discharge: Improved Follow Up: Weeks (1) Disposition/Orders: D/C to Home Scheduled Amoxicillin/Potassium Clav (Amox Tr-K Clv 875-125 Mg Tab) 1 Each Tablet, 1 TAB PO BID for Enteritis for 3 Days, #6 Prescribed by: GUDELIA LABOY MD on 03/15/21 1341 Ondansetron (Ondansetron Odt) 4 Mg Tab.rapdis, 1 TAB PO PRN Q6-8HRS, #20 Prescribed by: ROGER FOSTER on 03/11/21 1159 Discontinued Medications Nitrofurantoin Monohyd/M-Cryst (Macrobid 100 Mg Capsule) 100 Mg Capsule, 1 CAP PO BID for 5 Days, #10 Ref 0 Prescribed by: BRETT APARICIO DO on 02/04/21 0816 Justicifation of Admission Dx: Justifications for Admission: Justification of Admission Dx: Yes GUDELIA LABOY MD Mar 15, 2021 13:43
[2021-03-15] MEDS ORDERED: ASA/APAP/CAFFEINE 250/250/65MG TABLET. PO PRN (13:45)
--- NOTE | 2021-03-15 14:28 | NUR ---
Discharge Note: PT DISCHARGED HOME WITH SELF CARE. PT LEFT FACILITY VIA PRIVATE VEHICLE WITH FRIEND AT 1425. PT STABLE AND ALERT UPON DISCHARGE. PT PIV REMOVED FROM L AC WITHOUT COMPLICATIONS, BANDAGE APPLIED. PT EDUCATED ABOUT DISCHARGE INSTRUCTIONS, DISCHARGE MEDICATIONS, AND FOLLOW-UP CARE INSTRUCTIONS, NO CONCERNS VOICED AT THIS TIME. PT LEFT WITH ALL PERSONAL BELONGINGS. [facility] Discharge instructions and discharge home medications reviewed with Patient and a copy given. All questions have been answered and understanding verbalized.
== END 2021-03-15 14:32 | disposition home or self-care (01) ==
LOC: ER 19:38 → 5 SOUTH 23:30
PROVIDERS: ADMIT Internal Medicine; ATTEND Internal Medicine
DX: K52.9 Noninfective gastroenteritis and colitis, unspecified (principal); Z20.822 Contact with and (suspected) exposure to COVID-19; N30.00 Acute cystitis without hematuria; N94.6 Dysmenorrhea, unspecified; D18.03 Hemangioma of intra-abdominal structures; F12.90 Cannabis use, unspecified, uncomplicated; R11.2 Nausea with vomiting, unspecified; Z79.899 Other long term (current) drug therapy; Z98.890 Other specified postprocedural states
CPT/HCPCS: 36415; 71045; 74177; 80053; 80307; 81001; 81025; 83690; 85025; 87086; 93005; 96361; 96365; 96366; 96372; 96375; 96376; 99285; G0378; J0696; J1630; J1650; J2405; J2543; J3010; J7030; Q9967; U0003; U0005; G0379

== ENCOUNTER 2021-07-02 13:18 | Emergency (ER) | payer SELFPAY ==
[~2021-07-02] VITALS: Ht 175.3 cm; Wt 103.0 kg
[2021-07-02 13:18] VITALS: BP 163/83
[~2021-07-02 13:18] MED LIST changes: +AMOX1TAB11 PO
[2021-07-02] MEDS ORDERED: MECL12.582 PO (13:40)
[2021-07-02] MEDS ORDERED: ONDA4TAB12 PO (13:40)
--- NOTE | 2021-07-02 13:40 | PHYS DOC ---
Past Medical History Past Medical History: No Pertinent History Past Surgical History: No Surgical History Smoking Status: Never Smoker Alcohol Use: None Drug Use: None General Adult EDM: Chief Complaint: MULTIPLE COMPLAINTS HPI: HPI: Patient is a 21 year old female with no significant medical problems presenting to the ED today complaining of nausea, vomiting, dizziness, symptoms have been going on for years. Patient denies any headache, chest pain, shortness of breath, denies any chance she is . Reports chronic left lower quadrant abdominal pain. She states she has been worked up in this ED multiple times and has been seen at other ED's for the same complaint. She states she has had multiple lab draws as well as CTs and there is nothing acute that has been found. She states they keep giving her "different reasons" for her symptoms. She states she is tired of it. She states today she does not want anybody drawing labs from her today. She states she has missed work for 1 week and needs a note to be excused from work because her boss does not believe her. Review of Systems: Review of Systems: Constitutional: Denies fever or chills. [] Eyes: Denies change in visual acuity. [] HENT: Denies nasal congestion or sore throat. [] Respiratory: Denies cough or shortness of breath. [] Cardiovascular: Denies chest pain or edema. [] GI: Reports chronic nausea and vomiting. Denies abdominal pain, bloody stools or diarrhea. [] : Denies dysuria. [] Musculoskeletal: Denies back pain or joint pain. [] Integument: Denies rash. [] Neurologic: Reports dizziness denies headache, focal weakness or sensory changes. [] Psychiatric: Denies depression or anxiety. [] Heart Score: C/O Chest Pain: N/A Risk Factors: Risk Factors: DM, Current or recent (<one month) smoker, HTN, HLP, family history of CAD, obesity. Risk Scores: Score 0 - 3: 2.5% MACE over next 6 weeks - Discharge Home Score 4 - 6: 20.3% MACE over next 6 weeks - Admit for Clinical Observation Score 7 - 10: 72.7% MACE over next 6 weeks - Early Invasive Strategies Allergies: Allergies: Allergies Coded Allergies Type Severity Reaction Last Updated Verified I S O L A T I O N *CONTACT* Allergy Unknown 02/07/21 Yes No Known Medication Allergies Allergy Unknown 02/07/21 Yes Physical Exam: PE: Constitutional: Well developed, well nourished, no acute distress, non-toxic appearance. [] HENT: Normocephalic, atraumatic, bilateral external ears normal, oropharynx moist, no oral exudates, nose normal. [] Eyes: PERRLA, EOMI, conjunctiva normal, no discharge. [] Neck: Normal range of motion, no tenderness, supple, no stridor. [] Cardiovascular:Heart rate regular rhythm, no murmur [] Lungs & Thorax: Bilateral breath sounds clear to auscultation [] Abdomen: Bowel sounds normal, soft, no tenderness, no masses, no pulsatile masses. [] Skin: Warm, dry, no erythema, no rash. [] Back: No tenderness, no CVA tenderness. [] Extremities: No tenderness, no cyanosis, no clubbing, ROM intact, no edema. [] Neurologic: Alert and oriented X 3, normal motor function, normal sensory fun ction, no focal deficits noted. Cranial nerves II through XII intact Psychologic: Affect normal, judgement normal, mood normal. [] Current Patient Data: Vital Signs: Vital Signs Date Time Temp Pulse Resp B/P (MAP) Pulse Ox O2 Delivery O2 Flow Rate FiO2 07/02/21 13:18 98.5 100 16 163/83 (109) 99 Room Air 98.5 EKG: EKG: [] Radiology/Procedures: Radiology/Procedures: [] Course & Med Decision Making: Course & Med Decision Making Pertinent Labs and Imaging studies reviewed. (See chart for details) This is a 21-year-old female patient presenting to the ED today complaining of chronic nausea, vomiting, dizziness. She reports being worked up for this symptoms multiple times in this ED and at other ED's. Today she is refusing any work-up, she states she does not want anyone drawing labs from her/poking her. Denies being . She is requesting a note for work, she states she has missed work for 1 week and her boss does not believe her. Work excuse was given for four days. Provided specialist for follow-up for her chronic symptoms and PCP Deyvi Disclaimer: Deyvi Disclaimer: This electronic medical record was generated, in whole or in part, using a voice recognition dictation system. Departure Departure Impression: Primary Impression: Nausea & vomiting Qualified Codes: R11.2 - Nausea with vomiting, unspecified Additional Impression: Dizziness Disposition: HOME / SELF CARE / HOMELESS Condition: STABLE Referrals: NO PCP (PCP) GERDA SAWANT MD followup in one week Patient Instructions: Dizziness, [id number], Nausea and Vomiting, [id number] Additional Instructions: You were evaluated in the emergency room, we highly recommend you contact the specialist and primary care doctors provided at discharge for follow-up. Scripts Meclizine Hcl (MECLIZINE HCL) 12.5 Mg Tablet 1 TAB PO TID, #15 TAB 3 Refills Prov: SAEID BRUNO APRN 07/02/21 Ondansetron (ONDANSETRON ODT) 4 Mg Tab.rapdis 1 TAB PO PRN Q6-8HRS, #16 TAB Prov: SAEID BRUNO APRN 07/02/21 SAEID BRUNO APRN July 02, 2021 13:40
== END 2021-07-02 13:45 | disposition home or self-care (01) ==
LOC: ER 13:18
DX: R11.2 Nausea with vomiting, unspecified (principal); R42 Dizziness and giddiness; R10.32 Left lower quadrant pain; Z88.8 Allergy status to other drugs, medicaments and biological substances
CPT/HCPCS: 99283